=== PATIENT | female | born 1945 | race Caucasian/White ===

== ENCOUNTER 2019-02-03 17:38 | Inpatient (IN) | payer MEDICARE ==
[~2019-02-03] VITALS: Ht 167.6 cm; Wt 60.0 kg
[~2019-02-03 17:38] MED LIST: ABAT250V; CALCA400CH; FERSU220EL; GABA300 PO; LATUDA20 MG
[2019-02-03] MEDS ORDERED: PRAM.125 PO (18:02)
[2019-02-03 18:24] LABS: BASOPHILS ABSOLUTE AUTO 0.07 K/mm3 (0.00-0.23); BASOPHILS PERCENT AUTO 1 % (0-2); EOSINOPHILS ABSOLUTE AUTO 0.23 K/mm3 (0.00-0.68); EOSINOPHILS PERCENT AUTO 2 % (0-6); Hematocrit 38.2 % (33.0-51.0); Hemoglobin 12.5 g/dL (11.5-16.0); IMMATURE GRAN ABSOLUTE AUTO 0.03 K/mm3 (0.00-0.10); IMMATURE GRAN PERCENT AUTO 0 % (0-1); LYMPHOCYTES ABSOLUTE AUTO 0.88 K/mm3 (0.84-5.20); LYMPHOCYTES PERCENT AUTO 9 % (21-46); MONOCYTES ABSOLUTE AUTO 0.58 K/mm3 (0.16-1.47); MONOCYTES PERCENT AUTO 6 % (4-13); Mean Corpuscular HGB 30.3 pg (26.0-34.0); Mean Corpuscular HGB Conc 32.7 g/dL (31.5-36.5); Mean Corpuscular Volume 93 fL (80-100); NEUTROPHILS ABSOLUTE AUTO 7.95 K/mm3 (1.96-9.15); NEUTROPHILS PERCENT AUTO 82 % (41-73); RDW Standard Deviation 47.8 fL (35.1-46.3); Red Blood Cell Count 4.12 M/mm3 (3.80-5.20); White Blood Cell Count 9.74 K/mm3 (4.00-11.30)
[2019-02-03 18:53] LABS: Albumin, Blood 3.5 g/dL (3.4-5.0); Albumin/Globulin Ratio 0.8 (0.8-1.8); Bilirubin, Total 0.8 mg/dL (0.1-1.0); Bun/Creatinine Ratio 37.8 (12.0-20.0); Calcium, Blood 11.4 mg/dL (8.5-10.1); Creatinine, Blood 0.98 mg/dL (0.40-1.00); Globulin, Blood 4.2 g/dL (2.2-4.0); Mean Platelet Volume 11.6 fL (9.1-12.4); Platelet Count 179 K/mm3 (150-400); Potassium, Blood 4.4 mmol/L (3.5-5.5); Total Protein, Blood 7.7 g/dL (6.4-8.2)
[2019-02-03 20:31] LABS: Free Thyroxine 1.36 ng/dL (0.70-1.60)
[2019-02-03 20:35] LABS: Thyroid Stimulating Hormone 2.52 uIU/mL (0.360-4.800); Triiodothyronine, Free 2.9 pg/mL (2.18-3.98)
[2019-02-03 21:03] LABS: Source, Urine Catheter
[2019-02-03 21:04] LABS: International Normalized Ratio 0.96; Prothrombin Time Results 10.2 Sec (9.7-11.5)
[2019-02-03 21:06] LABS: Bilirubin, Urine Neg (Neg); Blood, Urine 1+ (Neg); Color, Urine Pale Yellow (P-Yellow); Glucose Qualitative, Urine Neg (Neg); Ketones, Urine Neg (Neg); Leukocyte Esterase, Urine 1+ (Neg); Nitrite, Urine Neg (Neg); Protein, Urine 3+ (Neg); Specific Gravity, Urine 1.015 (1.003-1.022); Urobilinogen, Urine NORM (Normal)
[2019-02-03 21:07] LABS: Appearance, Urine Cloudy (Clear)
[2019-02-03 21:15] LABS: Amorphous Heavy (0-Heavy); Bacteria Mod /hpf; Red Blood Cells, Urine Rare /hpf (0-2); Squamous Epithelial Cells Not Seen /hpf (Few)
[2019-02-03] MEDS ORDERED: AMLO5 PO (22:01)
[2019-02-03] MEDS ORDERED: Pravachol40 MG PO (22:01)
[2019-02-03] MEDS ORDERED: ESCI10 PO (22:02)
[2019-02-03] MEDS ORDERED: Omeprazole20 M1 PO (22:03)
[2019-02-03] MEDS ORDERED: Ferrous Sulfat325 M2 PO (22:03)
--- NOTE | 2019-02-03 23:30 | NUR ---
ASSUMED CARE- PT ARRIVES TO PCU 5 VIA STRETCHER FROM ER. CURRENTLY AOX4. PT AMBULATES WITH STANDBY ASSIST TO BEDSIDE COMMODE AND THEN TO BED. BLOOD PRESSURE ELEVATED, ALL OTHER VSS. PT CURRENTLY COMPLAINING OF PAIN TO EPIGASTRIC AREA AND REQUESTING PAIN MEDICATION. HEART RHYTHM CURRENTLY SINUS TACHYCARDIA WITH FREQUENT PVC'S WITH A RATE OF 103 PER LANGUAGE INSTRUCTOR. LUNG SOUNDS CLEAR THROUGHOUT. DENIES NAUSEA AT THIS TIME. OCCASIONAL PRODUCTIVE COUGH NOTED OF SMALL AMOUNTS OF THICK, BROWN SPUTUM. PT ORIENTED TO ROOM AND EDUCATED RUBBER SPLICER LIGHT SYSTEM. INFORMED ON CALLING FOR ASSISTANCE WITH AMBULATION. WILL CONTINUE WITH ADMISSION AND MONITORING. BED IN LOW POSITION, CALL LIGHT IN REACH.
[2019-02-04] LABS: Hematocrit 40.2 % (33.0-51.0); Hemoglobin 12.7 g/dL (11.5-16.0)
--- NOTE | 2019-02-04 00:19 | NUR ---
PROVIDER CONTACTED VIRTUAL RADIOLOGY CALLED WITH CRITICAL READING RESULT FROM CHEST/ABD CTA. PT WITH SMALL PE TO RLL. PT ALSO REPORTING CONTINUED PAIN TO EPIGASTRIC AREA. DR RAUSCH CONTACTED AND RESULTS OF CTA VERBALIZED AND PHYSICIAN REPORTED THAT CT RESULTS. ORDERS RECEIVED FOR FENTANYL 25 MCG Q4 PRN FOR PAIN. WILL INPUT ORDERS AND ADMINISTER.
[2019-02-04 02:37] LABS: Hematocrit 39.1 % (33.0-51.0); Hemoglobin 12.6 g/dL (11.5-16.0); Mean Corpuscular HGB 30.8 pg (26.0-34.0); Mean Corpuscular HGB Conc 32.2 g/dL (31.5-36.5); Mean Platelet Volume 10.4 fL (9.1-12.4); Platelet Count 287 K/mm3 (150-400); RDW Standard Deviation 49.3 fL (35.1-46.3); Red Blood Cell Count 4.09 M/mm3 (3.80-5.20); White Blood Cell Count 11.08 K/mm3 (4.00-11.30)
[2019-02-04 02:53] LABS: Mean Corpuscular Volume 96 fL (80-100)
[2019-02-04 03:03] LABS: Alanine Aminotransfer (ALT/SGP 12 U/L (12-78); Albumin, Blood 3.2 g/dL (3.4-5.0); Albumin/Globulin Ratio 0.8 (0.8-1.8); Alk Phos 87 U/L (50-136); Anion Gap 7 mmol/L (6-16); Aspartate Aminotrans (AST/SGOT 13 U/L (12-37); Bilirubin, Total 0.5 mg/dL (0.1-1.0); Blood Urea Nitrogen 31 mg/dL (8-24); Bun/Creatinine Ratio 33.5 (12.0-20.0); CO2, Blood 28 mmol/L (21-32); Calcium, Blood 9.7 mg/dL (8.5-10.1); Chloride, Blood 100 mmol/L (98-108); Creatinine, Blood 0.93 mg/dL (0.40-1.00); Globulin, Blood 3.8 g/dL (2.2-4.0); Glomerular Filtration Rate >60 (60-); Glucose, Blood 126 mg/dL (70-99); Potassium, Blood 4.3 mmol/L (3.5-5.5); Sodium, Blood 135 mmol/L (136-145)
--- NOTE | 2019-02-04 06:04 | NUR ---
SHIFT SUMMARY- PT HAS REMAINED AOX4 THROUGHOUT SHIFT. PLEASANT AND COOPERATIVE WITH CARE. BP HAS REMAINED ELEVATED THROUGHOUT THE NIGHT BUT HAS DECREASED SINCE ARRIVAL, ALL OTHER VSS. HEPARIN DRIP STARTED FOR TREATMENT OF PE AND TITRATED PER PHARMACY. PT MEDICATED MULTIPLE TIMES FOR EPIGASTRIC PAIN THAT RELIEVES WITH MAALOX. ALSO MEDICATED FOR GENERALIZED PAIN THAT DECREASES WITH ORDERED PAIN MEDICATION. PT CONTINUES TO AMBULATE WITH STANDBY ASSIST TO BEDSIDE COMMODE WITHOUT DIFFICULTY, REPORTS THAT SHE AMBULATES WITH WALKER AT BASELINE. HEART RATE HAS REMAINED CONTROLLED THROUGHOUT THE NIGHT. PT WITH NO EPISODES OF EMESIS OR DARK STOOL- REPORTS THAT PREVIOUS BM'S HAVE BEEN BROWN AND "NORMAL" FOR HER. NO OTHER CHANGES NOTED FROM INITIAL ASSESSMENT. WILL CONTINUE TO MONITOR AND REPORT TO ONCOMING SHIFT RN. BED IN LOW POSITION, CALL LIGHT IN REACH.
--- NOTE | 2019-02-04 13:30 | NUR ---
NOTIFIED DR MONTERO THAT PATIENT TAKES GABAPENTIN 600MG PO TID AT HOME, VERIFIED WITH [facility], NEW ORDERS ENTERED. NOTIFIED OF ELEVATED BP, CONTACT PROVIDER WITH SBP 175 OR GREATER[address] NOTIFIED THAT [address] ALVARADO WILL BE IN LATER THIS EVENING.
--- NOTE | 2019-02-04 19:46 | NUR ---
SHIFT SUMMARY PT A&OX4. ANXIOUS, NOTIFED DR MONTERO, NO NEW ORDERS. PT COOPERATIVE WITH CARE. PT RESTING IN BED DURING SHIFT, SBA TO BSC. PT REPORTS PAIN, EVERYWHERE, BACK AND BLE, MEDICATED X2 WITH FENTANYL. PT REPORTS HEART BURN/GI UPSET, MEDICATED PER EMAR. PT DENIES SOB, O2 SATS >91% ON RA. PT RECEIVING IV PROTONIX, NO EMESIS DURING SHIFT. PT ON HEPARIN DRIP FOR PE, DOSE ADJUSTMENTS PER ORDERS AND EMAR. ELEVATED BP THIS AM, NOTIFIED DR MONTERO, NO NEW ORDERS. OTHER VSS. NO ACUTE CHANGES NOTED DURING SHIFT. REPORT GIVEN TO ONCOMING RN.
[2019-02-05 00:36] LABS: Stool Occult Blood Guaiac 1 Neg (Neg)
[2019-02-05 00:45] LABS: Adenovirus F 40/41 Not Detected (NOT DETECT); Astrovirus Not Detected (NOT DETECT); Campylobacter Sp Not Detected (NOT DETECT); Cryptosporidium Not Detected (NOT DETECT); Cyclospora Cayetanensis Not Detected (NOT DETECT); E. Coli O157 Not Detected (NOT DETECT); Entamoeba Histolytica Not Detected (NOT DETECT); Enteroaggregative E. coli-EAEC Not Detected (NOT DETECT); Enteropathogenic E. coli-EPEC Not Detected (NOT DETECT); Enterotoxigenic E. coli-ETEC Not Detected (NOT DETECT); Giardia Lamblia Not Detected (NOT DETECT); Norovirus GI/GII Not Detected (NOT DETECT); Plesiomonas Shigelloides Not Detected (NOT DETECT); Rotavirus A Not Detected (NOT DETECT); Salmonella Sp Not Detected (NOT DETECT); Sapovirus Not Detected (NOT DETECT); Shiga Toxin-prod E. coli-STEC Not Detected (NOT DETECT); Shigella/Enteroin E. coli-EIEC Not Detected (NOT DETECT); Vibrio Cholerae Not Detected (NOT DETECT); Vibrio Sp Not Detected (NOT DETECT); Yersinia Enterocolitica Not Detected (NOT DETECT)
--- NOTE | 2019-02-05 03:14 | NUR ---
PROVIDER CONTACTED PT STOOL SPECIMEN RESULTED POSITIVE FOR C-DIFF. DR RAUSCH CONTACTED AND ORDERS RECEIVED FOR VANCOMYCIN 125 MG PO Q6. WILL INPUT ORDERS.
--- NOTE | 2019-02-05 06:26 | NUR ---
SHIFT SUMMARY- PT HAS REMAINED AOX4 THROUGHOUT SHIFT. VSS. PLEASANT AND COOPERATIVE WITH CARE. PT CONTINUES TO AMBULATE WITH STANDBY ASSIST TO BEDSIDE COMMODE. MEDICATED MULTIPLE TIMES THROUGHOUT SHIFT FOR GENERALIZED PAIN AND GI UPSET, BOTH OF WHICH DECREASED WITH ORDERED MEDICATIONS. PT HAS REMAINED NPO SINCE 0600 IN PREPARATION FOR EGD THIS AM. HEPARIN DRIP HAS BEEN ON STANDBY SINCE [address] ALVARADO'S ORDERS- PHARMACY INFORMED OF ANTICIPATED PAUSE PRIOR TO PLACING DRIP ON STANDBY. O2 SATS REMAINED >90% ON RA. NO OTHER CHANGES FROM INITIAL ASSESSMENT. WILL CONTINUE TO MONITOR AND REPORT TO ONCOMING SHIFT RN. BED IN LOW POSITION, CALL LIGHT IN REACH.
[2019-02-05 08:05] LABS: BASOPHILS PERCENT AUTO 1 % (0-2); EOSINOPHILS ABSOLUTE AUTO 0.43 K/mm3 (0.00-0.68); EOSINOPHILS PERCENT AUTO 6 % (0-6); Hemoglobin 10.9 g/dL (11.5-16.0); IMMATURE GRAN ABSOLUTE AUTO 0.03 K/mm3 (0.00-0.10); IMMATURE GRAN PERCENT AUTO 0 % (0-1); LYMPHOCYTES ABSOLUTE AUTO 1.15 K/mm3 (0.84-5.20); LYMPHOCYTES PERCENT AUTO 15 % (21-46); MONOCYTES ABSOLUTE AUTO 0.73 K/mm3 (0.16-1.47); MONOCYTES PERCENT AUTO 10 % (4-13); Mean Corpuscular HGB 30.4 pg (26.0-34.0); Mean Corpuscular HGB Conc 31.1 g/dL (31.5-36.5); Mean Corpuscular Volume 98 fL (80-100); Mean Platelet Volume 11.9 fL (9.1-12.4); NEUTROPHILS ABSOLUTE AUTO 5.19 K/mm3 (1.96-9.15); NEUTROPHILS PERCENT AUTO 68 % (41-73); Platelet Count 241 K/mm3 (150-400); RDW Coefficient Variation 14.3 % (11.7-14.2); RDW Standard Deviation 51.5 fL (35.1-46.3); Red Blood Cell Count 3.59 M/mm3 (3.80-5.20); White Blood Cell Count 7.63 K/mm3 (4.00-11.30)
--- NOTE | 2019-02-05 08:30 | NUR ---
NURSING PCU DAYSHIFT: Assumed care of pt at approx 0700. A/O, pleasant, cooperative w/care. C/O 05/11 chronic back pain, treating w/meds as ordered. Transfers independently w/o difficulty, uses FWW for ambulation. Chronic numbness/tingling of all ext's. Skin is fragile w/scattered bruising on UE's, no breakdown noted. Tele in place, NSR, no c/o CP/pressure, SBP 140's prior to a.m. meds, no noted edema. L/S fairly cta t/o w/dim bases, O2 sat low 90's on RA, occ cough producing white sputum per pt, denies dyspnea. Abd soft, mildly tender w/palp per pt, BT+, voiding w/o difficulty. PIV x2, s/l. No s/s of acute distress at this time. Plan for EGD this a.m. Seen by PMD, new d/o received for labs, results pending. Pt denies any current needs or questions regarding plan of care, call light in reach, cont to monitor for any changes.
--- NOTE | 2019-02-05 09:24 | NUR ---
History, Chart, Medications and Allergies reviewed before start of procedure. Lungs clear T/O to Auscultation.DIMINISHED BASES BILAT, RA BIOX 92/93%, COPD, WET COUGH, NO DYSPNEA, AFIB ON MONITOR, HEPARIN DRIP TURNED OFF AT 0200 THIS AM Patient confirms NPO status and agrees with scheduled surgery. Pre-Op teaching done. Pt verbalizes understanding. AMUBLATORY IN PCU5, TRANSFERS W/STANDBY ASSIST.
--- NOTE | 2019-02-05 09:36 | NUR ---
02/05/19 0936 Gordon Gardner PATIENT DETERMINED TO BE ASA APPROPRIATE FOR PROPOFOL SEDATION PRIOR TO START OF PROCEDURE BY . 3-LEAD EKG REVIEWED WITH PHYSICIAN PRIOR TO START OF PROCEDURE.PATIENT CONFIRMS NPO STATUS AND AGREES WITH SCHEDULED PROCEDURE.History, Chart, Medications and Allergies reviewed before start of procedure.MONITOR INTACT WITH CONTINUOUS PULSE OXIMETRY AND INTERMITTENT BP.O2 VIA N/C INTACT THROUGHOUT SEDATION/PROCEDURE.Bite Block Placed
--- NOTE | 2019-02-05 17:03 | NUR ---
NURSING PCU DAYSHIFT SUMMARY: No significant changes noted t/o the shift. EGD completed, pt tolerated well. Results reported to PMD, hep gtt resumed, mech soft diet started. Pt continues to c/o chronic pain, pain control meds changed to PO, administered as ordered. Pt appears to be resting comfortably at this time w/call light in reach. Denies any questions/needs, cont to monitor until rpt is given to NOC RN.
--- NOTE | 2019-02-06 05:01 | NUR ---
SHIFT SUMMARY PATIENT HAD NO ACUTE CHANGES OBSERVED THIS SHIFT. PATIENT REPORTED LOW BACK PAIN X 2 AND RECEIVED ULTRAM PER EMAR. PATIENT REPORTED REDUCED PAIN AND ABLE TO SLEEP. PIV REMAINS INTACT. HEPARIN INFUSING PER EMAR. ORAL VANCO GIVEN X 2. VSS/AFEBRILE. DENIES SOB AND N/V. RESTING IN BED T/O SHIFT. CALL LIGHT IN REACH. BED IN LOWEST POSITION. WILL CONTINUE TO MONITOR UNTIL DAY SHIFT NURSE ASSUMES CARE.
--- NOTE | 2019-02-06 07:53 | NUR ---
NURSING PCU DAYSHIFT: Assumed care of pt at approx 0700. A/O, pleasant, cooperative w/care. C/O /10 back and epigastric pain, treating w/meds as ordered and positioning. Able to xfer independently and w/o difficulty, chronic numbness/tingling of all ext's. Skin is intact w/scattered bruising to UE's, no breakdown noted. Tele in place, NSR w/PVC's, no c/o CP/pressure, SBP 130's prior to a.m. meds, no noted edema. L/S fairly cta t/o w/dim bases, occ cough producing white sputum per pt, O2 sat low 90's on RA, denies dyspnea. Abd soft, mildly tender w/palp, BT+, voiding clear/yellow urine. PIV x2, hep gtt infusing as per d/o. No s/s of acute distress at this time. Pt currently sitting up in bed having breakfast, denies any current questions/needs. Call light in reach, awaiting rounding from PMD, cont to monitor for any changes.
--- NOTE | 2019-02-06 15:17 | NUR ---
NURSING PCU TRANSFER SUMMARY: No acute changes noted t/o the a.m. Pt discussed w/PMD concerns regarding needing assistance at home for chores and ADL's, plan for care management to meet w/pt. VS remained stable, cardiac and respiratory status unchanged. Pt changed to medical status w/o tele, bed assignment received, telephone report provided to accepting RN. Pt denies any questions at this time, will xfer via w/c, cont to monitor until xfer is completed.
--- NOTE | 2019-02-06 16:19 | NUR ---
PT ARRIVED TO ROOM VIA W/C AWAKE ALERT. BED IN LOW AND LOCKED POSITION. FREQUENT ROUNDING EXPLAINED. CALL LIGHT INSTRUCTIONS GIVEN AND WITHIN REACH.
--- NOTE | 2019-02-06 18:06 | NUR ---
SHIFT SUMMARY TRANSFER FROM PCU THIS P.M. A AND OX4 INDEPENDENT IN ROOM. MECHANICAL SOFT DIET. ENDOSCOPY TODAY SHOWED NARROWING OF ESOPHAGUS WITH POSSIBLE NEED FOR DILATION. C/O PAIN TO LOWER AND UPPER EXT PRN MED GIVEN.
--- NOTE | 2019-02-07 07:19 | NUR ---
SHIFT SUMMARY PT HAD NO ACUTE ISSUES NOTED. PT DISCOMFORT TX WELL PER EMAR. PT SLEPT FOR MAJORITY OF SHIFT. PT HAD A EPISODE OF DIARRHEA EARLY THIS AM. PT STATES THIS WAS HER FIRST BOUT OF LOOSE STOOL. PT HAS BEEN WATCHING TV SINCE TAKING A SHOWER THIS AM. PT IS IN NO DISTRESS AND BREATHING EASY. CALL LIGHT IN REACH.
[2019-02-07] MEDS ORDERED: XARELTO15 MG PO (13:28)
[2019-02-07] MEDS ORDERED: XARELTO20 MG PO (13:29)
--- NOTE | 2019-02-07 17:06 | NUR ---
DISCHARGE PT DISCHARGED TO HOME WITH HOME HEALTH. THIS RN EXPLAINED DISCHARGE INSTRUCTIONS AND MEDICATIONS TO PT AND SHE REPORTS SHE UNDERSTANDS. IV X2 REMOVED WITHOUT DIFFICULTY. MEDICAL CODING TECHNICIAN IN TO SEE PT TO TALK ABOUT PT'S REQUEST FOR ASSISTANCE WITH FINDING PLACE TO LIVE IN ASSISTED FACILITY. PT'S MEDICATIONS FAXED TO [facility] PER REQUEST AND A RIDE TO THE PHARMACY AND TO HOME WAS SET UP WITH A TAXI. PT TRANSFERRED TO A TAXI VIA WHEELCHAIR BY KILN PULLER. PT'S BELONGINGS WITH PT.
== END 2019-02-07 16:54 | disposition home health service (06) | DRG 391 ==
LOC: ER 17:38 → PCU 17:39 → ER 23:00 → PCU 23:00 → MEDS 02-04 14:36 → PCU 02-04 14:37 → MEDS 02-06 16:15
PROVIDERS: Emergency Medicine; Hospitalist; Internal Medicine Gastroenterology; Nurse Practitioner Acute Care; ADMIT Family Medicine
PROC: 0DJ08ZZ Inspection of Upper Intestinal Tract, Via Natural or Artificial Opening Endoscopic (ICD-10-PCS; principal; 2019-02-05 09:00)
DX: K22.2 Esophageal obstruction (principal); I26.99 Other pulmonary embolism without acute cor pulmonale; I48.2 Chronic atrial fibrillation; Z79.01 Long term (current) use of anticoagulants; F31.9 Bipolar disorder, unspecified; Z91.14 Patient's other noncompliance with medication regimen; W19.XXXA Unspecified fall, initial encounter; E83.52 Hypercalcemia; D50.9 Iron deficiency anemia, unspecified; K44.9 Diaphragmatic hernia without obstruction or gangrene
CPT/HCPCS: 36415; 71046; 71275; 74174; 80053; 81001; 82272; 83690; 83880; 83970; 84439; 84443; 84481; 84484; 85014; 85018; 85025; 85027; 85610; 85730; 86850; 86900; 86901; 87086; 87324; 87338; 87507; 93005; 93010; 96361; 96374; 96375; 96376; 99285-25; C9113; G0378; J1644; J1650; J2270; J2405; J2704; J3010; J7030; J7120; Q9967

== ENCOUNTER 2019-02-20 19:02 | Emergency (ER) | payer MEDICARE ==
[~2019-02-20] VITALS: Ht 162.6 cm; Wt 59.0 kg
[~2019-02-20 19:02] MED LIST changes: +AMLO5 PO; +ESCI10 PO; +Ferrous Sulfat325 M2 PO; +Omeprazole20 M1 PO; +PRAM.125 PO; +Pravachol40 MG PO; +XARELTO15 MG PO; +XARELTO20 MG PO
[2019-02-20 20:50] LABS: Anion Gap 7 mmol/L (6-16); Blood Urea Nitrogen 11 mg/dL (8-24); Bun/Creatinine Ratio 13.9 (12.0-20.0); CO2, Blood 24 mmol/L (21-32); Calcium, Blood 8.9 mg/dL (8.5-10.1); Chloride, Blood 108 mmol/L (98-108); Creatinine, Blood 0.79 mg/dL (0.40-1.00); Glomerular Filtration Rate >60 (60-); Glucose, Blood 84 mg/dL (70-99); Potassium, Blood 3.7 mmol/L (3.5-5.5); Sodium, Blood 139 mmol/L (136-145)
[2019-02-20] MEDS ORDERED: Ativan0.5 MG PO (21:06)
== END 2019-02-20 21:35 | disposition home or self-care (01) ==
LOC: ER 19:02
PROVIDERS: Emergency Medicine
DX: R25.2 Cramp and spasm (principal); F31.9 Bipolar disorder, unspecified; I10 Essential (primary) hypertension; D64.9 Anemia, unspecified; F17.210 Nicotine dependence, cigarettes, uncomplicated; Z79.899 Other long term (current) drug therapy
CPT/HCPCS: 36415; 80048; 93005; 93010; 96374; 99284-25; J2060

== ENCOUNTER 2019-02-22 18:38 | Emergency (ER) | payer MEDICARE ==
[~2019-02-22] VITALS: Ht 162.6 cm; Wt 56.7 kg
[~2019-02-22 18:38] MED LIST changes: +Ativan0.5 MG PO
[2019-02-22] MEDS ORDERED: Ativan0.5 MG PO (21:07)
== END 2019-02-22 21:38 | disposition home or self-care (01) ==
LOC: ER 18:38
DX: M62.831 Muscle spasm of calf (principal); F31.9 Bipolar disorder, unspecified; I10 Essential (primary) hypertension; I48.2 Chronic atrial fibrillation; D64.9 Anemia, unspecified; K21.9 Gastro-esophageal reflux disease without esophagitis; F17.210 Nicotine dependence, cigarettes, uncomplicated; Z86.711 Personal history of pulmonary embolism
CPT/HCPCS: 96374; 96375; 96376; 99284-25; J1170; J2060

== ENCOUNTER 2019-02-26 22:26 | Emergency (ER) | payer MEDICARE ==
[~2019-02-26] VITALS: Ht 167.6 cm; Wt 59.0 kg
== END 2019-02-27 01:46 | disposition home or self-care (01) ==
LOC: ER 22:26
DX: R25.2 Cramp and spasm (principal); I48.91 Unspecified atrial fibrillation; I10 Essential (primary) hypertension; F17.210 Nicotine dependence, cigarettes, uncomplicated; Z79.899 Other long term (current) drug therapy
CPT/HCPCS: 93005; 93010; A9270-GY

== ENCOUNTER 2019-04-04 10:44 | Emergency (ER) | payer MEDICARE ==
[~2019-04-04] VITALS: Ht 167.6 cm; Wt 52.2 kg
[2019-04-04] MEDS ORDERED: OMEPRAZOLE20 MG PO (10:55)
[2019-04-04] MEDS ORDERED: LAMO25 PO (10:55)
[2019-04-04] MEDS ORDERED: LORA.5 PO (10:56)
== END 2019-04-04 13:05 | disposition home or self-care (01) ==
LOC: ER 10:44
DX: S01.81XA Laceration without foreign body of other part of head, initial encounter (principal); W01.198A Fall on same level from slipping, tripping and stumbling with subsequent striking against other object, initial encounter; Z79.899 Other long term (current) drug therapy; I48.91 Unspecified atrial fibrillation; I10 Essential (primary) hypertension; F17.210 Nicotine dependence, cigarettes, uncomplicated
CPT/HCPCS: 70450; 72125; 99284-25; A9270-GY

== ENCOUNTER 2019-04-13 16:11 | Observation (INO) | payer MEDICARE ==
[~2019-04-13] VITALS: Ht 167.6 cm; Wt 54.6 kg
[~2019-04-13 16:11] MED LIST changes: -AMLO5 PO; +LAMO25 PO; +LORA.5 PO; +OMEPRAZOLE20 MG PO; -XARELTO15 MG PO
[2019-04-13 16:34] LABS: BASOPHILS ABSOLUTE AUTO 0.08 K/mm3 (0.00-0.23); BASOPHILS PERCENT AUTO 1 % (0-2); EOSINOPHILS ABSOLUTE AUTO 0.45 K/mm3 (0.00-0.68); EOSINOPHILS PERCENT AUTO 6 % (0-6); Hematocrit 37.8 % (33.0-51.0); IMMATURE GRAN ABSOLUTE AUTO 0.01 K/mm3 (0.00-0.10); IMMATURE GRAN PERCENT AUTO 0 % (0-1); LYMPHOCYTES ABSOLUTE AUTO 1.51 K/mm3 (0.84-5.20); LYMPHOCYTES PERCENT AUTO 21 % (21-46); MONOCYTES ABSOLUTE AUTO 0.58 K/mm3 (0.16-1.47); MONOCYTES PERCENT AUTO 8 % (4-13); Mean Corpuscular HGB 28.4 pg (26.0-34.0); Mean Corpuscular HGB Conc 31.7 g/dL (31.5-36.5); Mean Corpuscular Volume 89 fL (80-100); Mean Platelet Volume 10.6 fL (9.1-12.4); NEUTROPHILS ABSOLUTE AUTO 4.47 K/mm3 (1.96-9.15); NEUTROPHILS PERCENT AUTO 63 % (41-73); Platelet Count 289 K/mm3 (150-400); RDW Coefficient Variation 16.2 % (11.7-14.2); RDW Standard Deviation 53.3 fL (35.1-46.3); Red Blood Cell Count 4.23 M/mm3 (3.80-5.20)
[2019-04-13 17:08] LABS: Alanine Aminotransfer (ALT/SGP 13 U/L (12-78); Albumin, Blood 3.4 g/dL (3.4-5.0); Albumin/Globulin Ratio 0.9 (0.8-1.8); Alk Phos 83 U/L (50-136); Anion Gap 9 mmol/L (6-16); Aspartate Aminotrans (AST/SGOT 12 U/L (12-37); Bilirubin, Total 0.6 mg/dL (0.1-1.0); Blood Urea Nitrogen 14 mg/dL (8-24); Bun/Creatinine Ratio 12.8 (12.0-20.0); CO2, Blood 22 mmol/L (21-32); Calcium, Blood 8.8 mg/dL (8.5-10.1); Chloride, Blood 104 mmol/L (98-108); Creatinine, Blood 1.09 mg/dL (0.40-1.00); Globulin, Blood 3.7 g/dL (2.2-4.0); Glomerular Filtration Rate 53 (60-); Glucose, Blood 87 mg/dL (70-99); Potassium, Blood 4.1 mmol/L (3.5-5.5); Sodium, Blood 135 mmol/L (136-145); Total Protein, Blood 7.1 g/dL (6.4-8.2); Troponin I <0.015 ng/mL (0.000-0.040)
[2019-04-13 17:25] LABS: International Normalized Ratio 0.96; Prothrombin Time Results 10.2 Sec (9.7-11.5)
[2019-04-13] MEDS ORDERED: XARELTO20 MG PO (18:55)
[2019-04-13] MEDS ORDERED: AMLO5 PO (18:58)
[2019-04-13 21:10] LABS: Hematocrit 35.7 % (33.0-51.0); Hemoglobin 11.5 g/dL (11.5-16.0)
[2019-04-14 00:14] LABS: U Amphetamine Screen Not Detected; U Barbituate Screen Not Detected; U Benzodiazapine Screen Not Detected; U Buprenorphine Screen Not Detected; U Cannabinoids Screen DETECTED; U Cocaine Screen Not Detected; U Methadone Screen Not Detected; U Methamphetamine Screen Not Detected; U Opiates Screen Not Detected; U Oxycodone Screen Not Detected; U Phencyclidine Screen Not Detected; U Propoxyphene Screen Not Detected
--- NOTE | 2019-04-14 00:34 | NUR ---
ASSUMED PT CARE AT 2245 PT ARRIVED VIA STRETCHER. ALERT AND ORIENTED AND ABLE TO MAKE NEEDS KNOWN. PT IMMEDIATELY ASKING FOR NARCOTICS UPON ARRIVAL. WHEN ASKED WHERE HER PAIN WAS AT SHE STATED IN HER LEGS. SHE STATED IT FELT LIKE THEY WERE CRAMPING AND WERE RESTLESS IN GENERAL. INFORMED HER I WOULD CALL THE DOCTOR IN REG[place]DS TO A MUSCLE RELAXER. PT ADAMENT ABOUT ENSURING IT WAS A NARCOTIC THAT SHE WAS GOING TO GET AND STATED THAT MUSCLE RELAXERS DON'T WORK. WHEN ASKED WHAT SHE TAKES AT HOME FOR HER PAIN SHE STATED, NOTHING, BECAUSE SHE DOESN'T HAVE ANYTHING. THEN STATED LATER THAT SHE JUST WANTS TO SLEEP. TWO CALL HAVE BEEN PLACED TO HOSPITALIST WITH THE FIRST BEING AROUND 2345 AND THE SECOND AT 0020 WITH NO ANSWERS. UPDATED PT ACCORDINGLY; PT GETS VERY ANGRY AND LABILE WITH MOOD REGARDING WANTING A PAIN PILL. ABDOMEN IS SOFT, NON-TENDER WITH ACTIVE BT. NO EMESIS NOTED. NO STOOLS THIS SHIFT. PT DENIES ANY BLOODY STOOL. STATES HER ONLY DISCOMFORT IS HER 10/10 PAIN TO HER LEGS. CALL LIGHT LEFT WITHIN REACH. PT ABLE TO MAKE NEEDS KNOWN.
--- NOTE | 2019-04-14 00:40 | NUR ---
DR. COLLINS CALLED BACK. EXPLAINED LEG CRAMPS, ELEVATED BP, AND PT REQUESTING SOMETHING FOR SLEEP. NEW ORDERS FOR FLEXERIL 10MG PO TID PRN, MELATONIN 3MG PO AT HS, AND NORVASC 5MG PO DAILY. UPDATED PT REGARDING NEW ORDERS. SHE STARTED SLAPPING HER LEGS AND CURSING STATING IT WASN'T GOING TO WORK. PT STATED SHE CAN'T BE HERE ANY LONGER. STATED SHE NEEDED TO GET UP AND OUT OF BED BECAUSE SHE COULDN'T TAKE IT ANY LONGER.
--- NOTE | 2019-04-14 02:20 | NUR ---
CALLED DR. COLLINS TO UPDATE REGARDING FLEXERIL BEING UNEFFECTIVE FOR PT'S MUSCLE CRAMPS. NEW ORDERS FOR FENTANYL 25-50MCG Q4HRS PRN.
[2019-04-14 03:41] LABS: BASOPHILS ABSOLUTE AUTO 0.08 K/mm3 (0.00-0.23); BASOPHILS PERCENT AUTO 1 % (0-2); EOSINOPHILS ABSOLUTE AUTO 0.45 K/mm3 (0.00-0.68); EOSINOPHILS PERCENT AUTO 7 % (0-6); Hemoglobin 12.4 g/dL (11.5-16.0); IMMATURE GRAN ABSOLUTE AUTO 0.01 K/mm3 (0.00-0.10); IMMATURE GRAN PERCENT AUTO 0 % (0-1); LYMPHOCYTES ABSOLUTE AUTO 1.24 K/mm3 (0.84-5.20); LYMPHOCYTES PERCENT AUTO 21 % (21-46); MONOCYTES ABSOLUTE AUTO 0.57 K/mm3 (0.16-1.47); MONOCYTES PERCENT AUTO 9 % (4-13); Mean Corpuscular HGB 28.6 pg (26.0-34.0); Mean Corpuscular HGB Conc 31.8 g/dL (31.5-36.5); Mean Corpuscular Volume 90 fL (80-100); Mean Platelet Volume 10.6 fL (9.1-12.4); NEUTROPHILS ABSOLUTE AUTO 3.71 K/mm3 (1.96-9.15); NEUTROPHILS PERCENT AUTO 61 % (41-73); Platelet Count 276 K/mm3 (150-400); RDW Coefficient Variation 16.1 % (11.7-14.2); RDW Standard Deviation 53.2 fL (35.1-46.3); Red Blood Cell Count 4.34 M/mm3 (3.80-5.20); White Blood Cell Count 6.06 K/mm3 (4.00-11.30)
[2019-04-14 04:01] LABS: Anion Gap 5 mmol/L (6-16); Blood Urea Nitrogen 18 mg/dL (8-24); Bun/Creatinine Ratio 18.6 (12.0-20.0); CO2, Blood 22 mmol/L (21-32); Calcium, Blood 8.9 mg/dL (8.5-10.1); Chloride, Blood 109 mmol/L (98-108); Creatinine, Blood 0.97 mg/dL (0.40-1.00); Glomerular Filtration Rate >60 (60-); Glucose, Blood 85 mg/dL (70-99); Potassium, Blood 4.1 mmol/L (3.5-5.5); Sodium, Blood 136 mmol/L (136-145)
--- NOTE | 2019-04-14 06:01 | NUR ---
END OF SHIFT SUMMARY NO SIGNIFICANT CHANGES. NO SIGNS OF ACTIVE BLEEDING; HGB STABLE AT 12.3. PT HASN'T HAD A BM THIS SHIFT, WELL NO EMESIS. PT HAS BEEN HYPERTENSIVE MOST OF SHIFT WHEN AWAKE AND IN DISCOMFORT D/T HER LEGS CRAMPING; SBP WAS IN THE 190'S. ONCE PT WAS SLEEPING AND RELAXED HER BP DROPPED TO 140'S. PT IS SUPPOSED TO BE TAKING NORVASC 5MG DAILY FOR HYPERTENSION, BUT DENIED TAKING IT AT ALL DURING MEDICATION RECONCILIATION; DR. COLLINS RESTARTED NORVASC AT 5MG. PT VERY UPSET FOR MOST OF SHIFT DEMANDING PAIN MEDICATION FOR HER LEGS THAT WERE CRAMPING. PT WAS GIVEN FLEXERIL THAT SHE CLAIMED WAS UNEFFECTIVE AND THEN FENTANYL 25MCG THAT ALSO WASN'T EFFECTIVE, BUT PT ENDED UP BEING ABLE TO SLEEP FOR A SHORT WHILE ABOUT AN HOUR AFTER ADMINISTRATION. EDUCATED AND ENCOURAGED PT TO FOLLOW UP WITH HER PRIMARY CARE DOCTOR REGARDING HER PAIN/DISCOMFORT IN HER LEGS SHE STATES IT IS BECOMING MORE OF A CHRONIC PROBLEM FOR HER. PT CLAIMS THAT SHE STRUGGLES FINDING TRANSPORTATION TO GET BACK AND FORTH TO APPOINTMENTS. SHE STATES SHE HAS NO FAMILY OR FRIENDS THAT LIVE IN THE [place] AND RELIES ON DIAL A RIDE FOR HER TRANSPORT. PT REQUIRES FREQUENT REINFORCEMENT AND EDUCATION. CALL LIGHT WITHIN REACH; ABLE TO MAKE NEEDS KNOWN. WILL CONTINUE TO MONITOR UNTIL REPORT IS HANDED OFF TO DAY SHIFT RN.
[2019-04-14] MEDS ORDERED: AMLO5 PO (10:17)
[2019-04-14] MEDS ORDERED: LORA2L PO (10:17)
--- NOTE | 2019-04-14 10:42 | NUR ---
PROVIDED PT WITH DISCHARGE INSTRUCTIONS AND ANSWERED ALL QUESTIONS. PROVIDED PT WITH A WRITTEN PRESCRIPTION FOR ATIVAN AND FAXED THE PRESCRIPTION FOR NORVASC TO [facility]. PROVIDED PT WITH A DIAL-A-RIDE HANDOUT WITH CONTACT INFORMATION TO HELP PT OBTAIN RIDES TO HER APPOINTMENTS AND PHARMACY. VERBALIZED GOOD UNDERSTANDING. CALLED THE [employer] SERVICE TO PROVIDE PT WITH A RIDE HOME.
== END 2019-04-14 10:50 | disposition home or self-care (01) ==
LOC: ER 16:11 → ICUW 16:12 → ICUE 22:28
PROVIDERS: Emergency Medicine; Nurse Practitioner Acute Care; ADMIT Internal Medicine
DX: K92.0 Hematemesis (principal); I10 Essential (primary) hypertension; F17.210 Nicotine dependence, cigarettes, uncomplicated; F10.20 Alcohol dependence, uncomplicated; F31.9 Bipolar disorder, unspecified; I48.2 Chronic atrial fibrillation; F41.9 Anxiety disorder, unspecified; E61.1 Iron deficiency; E87.1 Hypo-osmolality and hyponatremia; Z79.899 Other long term (current) drug therapy
CPT/HCPCS: 36415; 71045; 80048; 80053; 82272; 83690; 84484; 85014; 85018; 85025; 85610; 86850; 86900; 86901; 93005; 93010; 96361; 96374; 96375; 96376; 99285-25; C9113; G0378; G0480; J2405; J3010; J7030

== ENCOUNTER 2019-04-27 19:14 | Emergency (ER) | payer MEDICARE ==
[~2019-04-27] VITALS: Ht 167.6 cm; Wt 52.2 kg
[~2019-04-27 19:14] MED LIST changes: +AMLO5 PO; +LORA2L PO
== END 2019-04-27 22:15 | disposition home or self-care (01) ==
LOC: ER 19:14
DX: S00.211A Abrasion of right eyelid and periocular area, initial encounter (principal); F10.129 Alcohol abuse with intoxication, unspecified; I10 Essential (primary) hypertension; I48.91 Unspecified atrial fibrillation; F17.210 Nicotine dependence, cigarettes, uncomplicated; Z79.899 Other long term (current) drug therapy; Z23 Encounter for immunization; W01.0XXA Fall on same level from slipping, tripping and stumbling without subsequent striking against object, initial encounter
CPT/HCPCS: 70450; 72125; 90471; 90714; 99284-25

== ENCOUNTER 2019-05-03 16:15 | Observation (INO) | payer MEDICARE ==
[~2019-05-03] VITALS: Ht 167.6 cm; Wt 59.0 kg
[2019-05-03 17:35] LABS: BASOPHILS ABSOLUTE AUTO 0.11 K/mm3 (0.00-0.23); BASOPHILS PERCENT AUTO 1 % (0-2); EOSINOPHILS ABSOLUTE AUTO 0.31 K/mm3 (0.00-0.68); EOSINOPHILS PERCENT AUTO 3 % (0-6); Hematocrit 39.3 % (33.0-51.0); Hemoglobin 12.9 g/dL (11.5-16.0); IMMATURE GRAN ABSOLUTE AUTO 0.05 K/mm3 (0.00-0.10); IMMATURE GRAN PERCENT AUTO 1 % (0-1); LYMPHOCYTES ABSOLUTE AUTO 0.95 K/mm3 (0.84-5.20); LYMPHOCYTES PERCENT AUTO 10 % (21-46); MONOCYTES ABSOLUTE AUTO 0.82 K/mm3 (0.16-1.47); MONOCYTES PERCENT AUTO 9 % (4-13); Mean Corpuscular HGB 28.9 pg (26.0-34.0); Mean Corpuscular HGB Conc 32.8 g/dL (31.5-36.5); Mean Corpuscular Volume 88 fL (80-100); Mean Platelet Volume 10.4 fL (9.1-12.4); NEUTROPHILS ABSOLUTE AUTO 7.14 K/mm3 (1.96-9.15); NEUTROPHILS PERCENT AUTO 76 % (41-73); Platelet Count 339 K/mm3 (150-400); RDW Coefficient Variation 16.5 % (11.7-14.2); RDW Standard Deviation 52.9 fL (35.1-46.3); Red Blood Cell Count 4.47 M/mm3 (3.80-5.20); White Blood Cell Count 9.38 K/mm3 (4.00-11.30)
[2019-05-03 17:48] LABS: International Normalized Ratio 0.94
[2019-05-03 17:59] LABS: Alanine Aminotransfer (ALT/SGP 19 U/L (12-78); Albumin, Blood 3.6 g/dL (3.4-5.0); Albumin/Globulin Ratio 0.8 (0.8-1.8); Alk Phos 125 U/L (50-136); Anion Gap 7 mmol/L (6-16); Aspartate Aminotrans (AST/SGOT 21 U/L (12-37); Bilirubin, Total 0.4 mg/dL (0.1-1.0); Blood Urea Nitrogen 22 mg/dL (8-24); Bun/Creatinine Ratio 28.8 (12.0-20.0); CO2, Blood 26 mmol/L (21-32); Calcium, Blood 9.7 mg/dL (8.5-10.1); Chloride, Blood 93 mmol/L (98-108); Creatinine, Blood 0.76 mg/dL (0.40-1.00); Ethanol (Alcohol), Blood, Med <3 mg/dL; Globulin, Blood 4.7 g/dL (2.2-4.0); Glomerular Filtration Rate >60 (60-); Glucose, Blood 105 mg/dL (70-99); Potassium, Blood 4.1 mmol/L (3.5-5.5); Sodium, Blood 126 mmol/L (136-145); Total Protein, Blood 8.3 g/dL (6.4-8.2)
--- NOTE | 2019-05-04 06:04 | NUR ---
SHIFT SUMMARY PATIENT ADMITTED FROM ER. ORIENTED TO PERSON, SITUATION, AND PLACE. CIWA BETWEEN 4-9. TREATED WITH APPROPRIATE INTERVENTIONS (SEE EMAR). PATIENT UP WITH SBA TO BSC. WILL CONTINUE TO MONITOR
[2019-05-04 06:10] LABS: BASOPHILS ABSOLUTE AUTO 0.07 K/mm3 (0.00-0.23); BASOPHILS PERCENT AUTO 1 % (0-2); EOSINOPHILS ABSOLUTE AUTO 0.39 K/mm3 (0.00-0.68); EOSINOPHILS PERCENT AUTO 5 % (0-6); Hematocrit 36.3 % (33.0-51.0); Hemoglobin 11.8 g/dL (11.5-16.0); IMMATURE GRAN ABSOLUTE AUTO 0.02 K/mm3 (0.00-0.10); IMMATURE GRAN PERCENT AUTO 0 % (0-1); LYMPHOCYTES ABSOLUTE AUTO 0.96 K/mm3 (0.84-5.20); LYMPHOCYTES PERCENT AUTO 13 % (21-46); MONOCYTES ABSOLUTE AUTO 0.75 K/mm3 (0.16-1.47); MONOCYTES PERCENT AUTO 10 % (4-13); Mean Corpuscular HGB 28.7 pg (26.0-34.0); Mean Corpuscular HGB Conc 32.5 g/dL (31.5-36.5); Mean Corpuscular Volume 88 fL (80-100); Mean Platelet Volume 10.7 fL (9.1-12.4); NEUTROPHILS PERCENT AUTO 70 % (41-73); Platelet Count 287 K/mm3 (150-400); RDW Coefficient Variation 16.8 % (11.7-14.2); RDW Standard Deviation 53.6 fL (35.1-46.3); Red Blood Cell Count 4.11 M/mm3 (3.80-5.20); White Blood Cell Count 7.39 K/mm3 (4.00-11.30)
[2019-05-04 06:37] LABS: Anion Gap 4 mmol/L (6-16); Blood Urea Nitrogen 19 mg/dL (8-24); Bun/Creatinine Ratio 23.2 (12.0-20.0); CO2, Blood 27 mmol/L (21-32); Calcium, Blood 8.8 mg/dL (8.5-10.1); Chloride, Blood 106 mmol/L (98-108); Creatinine, Blood 0.82 mg/dL (0.40-1.00); Glomerular Filtration Rate >60 (60-); Glucose, Blood 107 mg/dL (70-99)
[2019-05-04 07:08] LABS: Sodium, Blood 137 mmol/L (136-145)
--- NOTE | 2019-05-04 16:56 | NUR ---
SHIFT SUMMARY PT ALERT THIS SHIFT. CIWA SCORE IN FROM 3-8. MEDICATED NEEDED. NO OTHER CHANGES IN ASSESSMENT AT THIS TIME. VSS. PT DENIES NEED AT THIS TIME. PT VERY IMPULSIVE & UNSTEADY. BED ALARM ON. PT REMINDED TO CALL WHEN NEEDING TO GET UP. WILL CONTINUE TO MONITOR UNTIL TURNOVER IS COMPLETE.
--- NOTE | 2019-05-05 04:47 | NUR ---
SHIFT SUMMARY PATIENT HAD NO ACUTE CHANGES OBSERVED THIS SHIFT. AXO X3 AND ONE ASSIST TO BR. UNSTEADY ON FEET AND IMPULSIVE WITH BED ALARM ACTIVATED. CIWA=3 THIS SHIFT. VSS/AFEBRILE. REPORTS BACK PAIN AND GIVEN TYLENOL PER EMAR. DENIES SOB AND N/V. PIV REMAINS INTACT. TAKES MEDICATION WHOLE WITH WATER. CALL LIGHT IN REACH. BED IN LOWEST POSITION. WILL CONTINUE TO MONITOR UNTIL DAY SHIFT NURSE ASSUMES CARE.
--- NOTE | 2019-05-05 09:04 | NUR ---
PT ASKING FOR PAIN MEDICATIONS DR. ZAMUDIO CALLED & NOTIFIED THAT THE PT IS DEMANDING THE DR. ORDER MORE PAIN MEDICATION. PT STATES TYLENOL DOES NOTHING & SHE NEEDS SOMTHING STRONGER. PT STATES PAIN IN HER LEGS. PT ALSO STATED SHE DOESN'T TAKE ANYTHING AT HOME FOR PAIN. DR. ZAMUDIO STATED SHE WILL REVIEW PT CHART.
[2019-05-05 10:37] LABS: Albumin, Blood 2.8 g/dL (3.4-5.0); Anion Gap 4 mmol/L (6-16); Blood Urea Nitrogen 17 mg/dL (8-24); Bun/Creatinine Ratio 20.8 (12.0-20.0); CO2, Blood 27 mmol/L (21-32); Calcium, Blood 8.6 mg/dL (8.5-10.1); Chloride, Blood 106 mmol/L (98-108); Creatinine, Blood 0.82 mg/dL (0.40-1.00); Glomerular Filtration Rate >60 (60-); Glucose, Blood 120 mg/dL (70-99); Phosphorus, Blood 3.6 mg/dL (2.5-4.9); Potassium, Blood 4.1 mmol/L (3.5-5.5); Sodium, Blood 137 mmol/L (136-145)
[2019-05-05] MEDS ORDERED: DOCU100 PO (13:51)
[2019-05-05] MEDS ORDERED: B-1100 MG PO (13:54)
[2019-05-05] MEDS ORDERED: FOLI1 PO (13:54)
--- NOTE | 2019-05-05 14:23 | NUR ---
PT DISCHARGED PT DISCAHRGED AT 1410. PT IN STABLE CONDITION WITH VSS. NO CHANGES IN ASSESSMENT AT THIS TIME. PT EDUCATED ON DC INSTRUCTIONS. PT WHEELED OUT BY OXIDIZED FINISH PLATER & DRIVEN HOME VIA TAXI.
== END 2019-05-05 14:10 | disposition home or self-care (01) ==
LOC: ER 16:15 → PCU 16:16 → MEDS 16:16
PROVIDERS: Emergency Medicine; Internal Medicine; ADMIT Hospitalist
DX: E87.1 Hypo-osmolality and hyponatremia (principal); R11.2 Nausea with vomiting, unspecified; R10.13 Epigastric pain; K21.9 Gastro-esophageal reflux disease without esophagitis; F10.129 Alcohol abuse with intoxication, unspecified; Z87.11 Personal history of peptic ulcer disease; I48.0 Paroxysmal atrial fibrillation; I10 Essential (primary) hypertension; F31.9 Bipolar disorder, unspecified; Z87.891 Personal history of nicotine dependence; Z79.899 Other long term (current) drug therapy
CPT/HCPCS: 36415; 80048; 80053; 80069; 83690; 85025; 85610; 85730; 96361; 96374; 96375; 97161; 99285-25; A9270; C9113; G0378; G0480; J2060; J2405; J7030

== ENCOUNTER 2019-05-10 19:45 | Inpatient (IN) | payer MEDICARE ==
[~2019-05-10] VITALS: Ht 167.6 cm; Wt 59.2 kg
[~2019-05-10 19:45] MED LIST changes: +B-1100 MG PO; +DOCU100 PO; +FOLI1 PO
[2019-05-10 21:41] LABS: BASOPHILS ABSOLUTE AUTO 0.08 K/mm3 (0.00-0.23); BASOPHILS PERCENT AUTO 1 % (0-2); EOSINOPHILS ABSOLUTE AUTO 0.04 K/mm3 (0.00-0.68); EOSINOPHILS PERCENT AUTO 1 % (0-6); Hematocrit 41.1 % (33.0-51.0); Hemoglobin 13.7 g/dL (11.5-16.0); IMMATURE GRAN ABSOLUTE AUTO 0.01 K/mm3 (0.00-0.10); IMMATURE GRAN PERCENT AUTO 0 % (0-1); LYMPHOCYTES ABSOLUTE AUTO 0.74 K/mm3 (0.84-5.20); LYMPHOCYTES PERCENT AUTO 13 % (21-46); MONOCYTES ABSOLUTE AUTO 0.32 K/mm3 (0.16-1.47); MONOCYTES PERCENT AUTO 6 % (4-13); Mean Corpuscular HGB 29.4 pg (26.0-34.0); Mean Corpuscular HGB Conc 33.3 g/dL (31.5-36.5); Mean Corpuscular Volume 88 fL (80-100); Mean Platelet Volume 10.5 fL (9.1-12.4); NEUTROPHILS ABSOLUTE AUTO 4.33 K/mm3 (1.96-9.15); NEUTROPHILS PERCENT AUTO 79 % (41-73); Platelet Count 339 K/mm3 (150-400); RDW Coefficient Variation 17.6 % (11.7-14.2); RDW Standard Deviation 55.6 fL (35.1-46.3); Red Blood Cell Count 4.66 M/mm3 (3.80-5.20); White Blood Cell Count 5.52 K/mm3 (4.00-11.30)
[2019-05-10 21:55] LABS: Ethanol (Alcohol), Blood, Med 264 mg/dL; Troponin I <0.015 ng/mL (0.000-0.040)
[2019-05-10 22:12] LABS: Alanine Aminotransfer (ALT/SGP 22 U/L (12-78); Albumin, Blood 3.6 g/dL (3.4-5.0); Albumin/Globulin Ratio 0.9 (0.8-1.8); Alk Phos 159 U/L (50-136); Anion Gap 13 mmol/L (6-16); Aspartate Aminotrans (AST/SGOT 35 U/L (12-37); Bilirubin, Total 0.7 mg/dL (0.1-1.0); Blood Urea Nitrogen 23 mg/dL (8-24); Bun/Creatinine Ratio 26.9 (12.0-20.0); CO2, Blood 31 mmol/L (21-32); Chloride, Blood 92 mmol/L (98-108); Creatinine, Blood 0.86 mg/dL (0.40-1.00); Globulin, Blood 4.2 g/dL (2.2-4.0); Glomerular Filtration Rate >60 (60-); Glucose, Blood 91 mg/dL (70-99); Potassium, Blood 3.9 mmol/L (3.5-5.5); Sodium, Blood 136 mmol/L (136-145); Total Protein, Blood 7.8 g/dL (6.4-8.2)
[2019-05-10 23:22] LABS: Free Thyroxine 1.24 ng/dL (0.70-1.60)
[2019-05-10 23:24] LABS: Thyroid Stimulating Hormone 1.04 uIU/mL (0.360-4.800); Triiodothyronine, Free 1.44 pg/mL (2.18-3.98)
--- NOTE | 2019-05-11 01:52 | NUR ---
PATIENT IS A NEW ADMIT FROM THE ED. TWO PERSON TRANSFER FROM [facility] TO BED. AXOX 3 AND ONE PERSON ASSIST TO BSC.PATIENT ORIENTED TO ROOM AND CALL LIGHT SYSTEM. N/V ON ADMIT WITH BASILIO. ZOFRAN AND TYLENOL GIVEN PER EMAR. TELE IN PLACE AND NSR 98. NS STARTED AT 150 mL/HR INFUSING. CALL LIGHT IN REACH.
--- NOTE | 2019-05-11 04:39 | NUR ---
SHIFT SUMMARY PATIENT IS HAVING INCREASING N/V AND ANXIETY WITH TREMORS. CIWA 7-8 AND ATIVAN IV 2 MG GIVEN PER EMAR. ZOFRAN GIVEN X TWO FOR N/V. PATIENT IS AXO X3 AND ONE ASSIST TO BSC. PATIENT REPORTS DRINKING QUART OF VODKA/DAY AND SMOKING MARIQUANA X TWO BOWELS DAILY. PIV REMAINS INTACT. NS INFUSING AT 150mL/HR X ONE AND NEXT NS AT 200mL/HR. TRAUMA COUNSELLOR REPORTS NSR 98. TAKES MEDICATION WHOLE WITH WATER. PATIENT GIVEN MAALOX PLUS X-S X ONE. PATIENT REPORTS ACID REFLUX T/O SHIFT. PROTONIX GIVEN SCHEDULE PER EMAR. CEDS 1 1/2 PACK/DAY. CALL LIGHT IN REACH. BED IN LOWEST POSITION. WILL CONTINUE TO MONITOR UNTIL DAY SHIFT NURSE ASSUMES CARE.
[2019-05-11 05:14] LABS: Anion Gap 13 mmol/L (6-16); Blood Urea Nitrogen 24 mg/dL (8-24); Bun/Creatinine Ratio 26.7 (12.0-20.0); CO2, Blood 27 mmol/L (21-32); Calcium, Blood 12.1 mg/dL (8.5-10.1); Chloride, Blood 96 mmol/L (98-108); Glomerular Filtration Rate >60 (60-); Glucose, Blood 131 mg/dL (70-99); Potassium, Blood 3.3 mmol/L (3.5-5.5); Sodium, Blood 136 mmol/L (136-145)
--- NOTE | 2019-05-11 05:15 | NUR ---
SQL DATABASE DEVELOPER HR 178-180 AND POSSIBLE A-FIB. HOSPITALIST DR MONTERO NOTIFIED AND REPORTS TO SENT HIM AN EKG. CHARGE NURSE SAI NOTIFED. AXO X 3 SLEEPING BUT AROUSABLE AFTER ATIVAN 2 MG IV AT 04:00. WILL CONTINUE TO MONITOR.
--- NOTE | 2019-05-11 05:19 | NUR ---
VITALS: T=97.5, H=382-338/TELE,R=14, BP= 117/82, O2=95% RA
--- NOTE | 2019-05-11 06:01 | NUR ---
HOSPITALIST DR MONTERO ORDERED METOPROLOL 5 MG IV Q6 FOR HR >130
--- NOTE | 2019-05-11 06:34 | NUR ---
IV METOPROLOL 5 MG GIVEN PER EMAR FOR HR >130. TELE MONITORING. WILL CONTINUE TO MONITOR.
[2019-05-11 13:22] LABS: Bun/Creatinine Ratio 26.7 (12.0-20.0); Calcium, Blood 11.1 mg/dL (8.5-10.1); Creatinine, Blood 1.05 mg/dL (0.40-1.00); Potassium, Blood 4.8 mmol/L (3.5-5.5); Troponin I 0.278 ng/mL (0.000-0.040)
--- NOTE | 2019-05-11 16:33 | NUR ---
SHIFT SUMMARY PATIENT DENIES PAIN, NAUSEA, AND SHORTNESS OF BREATH. PATIENT CONTINUES TO HAVE ELEVATED HR. IV LOPRESSOR GIVEN X2 THIS SHIFT. PT AND OT DEFERRED PATIENT UNTIL TOMORROW. PATIENT NAPPED MOST OF SHIFT. PATIENT UP SBA TO BSC. CALL LIGHT IN REACH, WILL CONTINUE TO MONITOR.
--- NOTE | 2019-05-11 18:20 | NUR ---
Pal Spiritual Care inital visit: Alyson was alone in room and sleeping. She awakens easily to voice and appears lucid. She told me she moved here from [facility]. She has been living in a motel. She has two children "who want nothing to do with me." She has not seen or heard from them in "decades." She also has a brother in [place] and a sister back east. She has not been in contact with them for many years. Alyson states she knows she is nearing end-of-life. 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 She denies regrets or remorse. We completed a POLST and it is awaiting physician signature. DNR, Comfort Measures. She was clear she did not want heroic measures. Alyson appears quite frail and weak, but states she is feeling better. Prayer provided at conclusion of visit. I will remain available.
--- NOTE | 2019-05-11 22:51 | NUR ---
ER SUICIDE ASSESSMENT POSITIVE, SUICIDE ASSESSMENT REDONE HERE ON MEDICAL FLOOR AND IS NEGATIVE. HOSPITALIST CALLED AND NOTIFIED.
[2019-05-12 04:46] LABS: BASOPHILS ABSOLUTE AUTO 0.03 K/mm3 (0.00-0.23); BASOPHILS PERCENT AUTO 0 % (0-2); EOSINOPHILS ABSOLUTE AUTO 0.17 K/mm3 (0.00-0.68); EOSINOPHILS PERCENT AUTO 2 % (0-6); Hematocrit 36.7 % (33.0-51.0); IMMATURE GRAN ABSOLUTE AUTO 0.04 K/mm3 (0.00-0.10); IMMATURE GRAN PERCENT AUTO 0 % (0-1); LYMPHOCYTES ABSOLUTE AUTO 0.88 K/mm3 (0.84-5.20); LYMPHOCYTES PERCENT AUTO 8 % (21-46); MONOCYTES PERCENT AUTO 7 % (4-13); Mean Corpuscular HGB 29.6 pg (26.0-34.0); Mean Corpuscular HGB Conc 32.7 g/dL (31.5-36.5); Mean Corpuscular Volume 90 fL (80-100); Mean Platelet Volume 10.1 fL (9.1-12.4); NEUTROPHILS ABSOLUTE AUTO 9.19 K/mm3 (1.96-9.15); NEUTROPHILS PERCENT AUTO 83 % (41-73); Platelet Count 275 K/mm3 (150-400); Red Blood Cell Count 4.06 M/mm3 (3.80-5.20); White Blood Cell Count 11.11 K/mm3 (4.00-11.30)
[2019-05-12 05:04] LABS: Bun/Creatinine Ratio 26.3 (12.0-20.0); Creatinine, Blood 1.14 mg/dL (0.40-1.00); Magnesium, Blood 1.8 mg/dL (1.6-2.4)
--- NOTE | 2019-05-12 05:50 | NUR ---
SHIFT SUMMARY PT HAS SLEPT WELL DURING THE NIGHT, CIWA'S RANGING FROM 0-3. PT RESPONDING ONLY TO VOICE FIRST HALF OF SHIFT. HAS BEEN UP TO BSC WITH AO1 SEVERAL TIMES DURING THE NIGHT. PT TELE STILL READING RATE IN THE 130'S, UNABLE TO GET RATE TO COME DOWN WITH IV LOPRESSOR AND ORAL LOPRESSOR. PT ASYMPTOMATIC WITH RATE. WILL CONTINUE TO MONITOR.
--- NOTE | 2019-05-12 18:11 | NUR ---
SHIFT SUMMARY THE PATIENT PRESENTED THIS SHIFT A&O X3, VITAL WNL, AND WITH CLEAR LUNGS. THE PATIENT WAS MOVED TO A DMR STATUS BY HER DOCTOR THIS SHIFT. THE PATIENT HAD ELEVATED C-WAW SCORES AND RECEIVED MEDICATIONS PER ORDERS FOR THEM. THE PATIENT IS EATING HER DINNER AND VISITING WITH HER FAMILY AT THIS TIME, WILL CONTINUE TO MONITOR.
--- NOTE | 2019-05-13 06:31 | NUR ---
SHIFT SUMMARY PT HAS BEEN HAVING LOW B/P'S DURING THE NIGHT WITH HR IN THE 130'S-140'S. HOSPITALIST NOTIFIED AND ORDER RECEIVED FOR LOPRESSOR 2.5 MG X2. ORAL METOPROLOL HELD DUE TO SYSTOLIC BEING BELOW 110. B/P THIS AM IN THE 130'S. PT SLEPT WELL. HAS IVF'S INFUSING PER PUMP AT 100ML/HR. USES BSC WITH ASSIST OF 1 STAFF. BED ALARM ON. CIWA'S BEEN 0-2, PT HAS BEEN SLEEPING. WILL CONTINUE TO MONITOR.
--- NOTE | 2019-05-13 10:40 | NUR ---
TRANSFER NOTE PT TRANSFERRED TO ICU ROOM 8 PCU STATUS FROM MEDICAL FLOOR ROOM 362 WITH AFIB RVR. PT OPENING EYES SPONTANEOUSLY AND RESPONDING TO QUESTIONS, FOLLOWING COMMANDS APPROPRIATELY. PT ORIENTED TO ALL BUT DATE, STATED "MAY [birth year], 2000" "I MEAN 2018". CIWA 9. PT MEDICATED WITH LIBRIUM 25MG PO PER ORDERS. PT REPORTED "SOME NAUSEA", MEDICATED PER ORDERS WITH ZOFRAN. PT REQUESTING ATIVAN, STATING "I'M IN WITHDRAWALS AND NEED THE ATIVAN", PT UNHAPPY WHEN INFORMED THAT ATIVAN IS NOT DUE TO BE GIVEN, STATED "BUT I'M IN PAIN AND I NEED ATIVAN OR TYLENOL WITH CODEINE". PT REPORTS HAVING CHRONIC BACK AND LEG PAIN. OFFERED PT TYLENOL, PT REFUSED. PT PLACED ON MONITOR, RHYTHM SHOWING AFIB WITH HR IN 130S. BP STABLE. SEE FLOWSHEET FOR VS. PT DENIES CHEST PAIN/PRESSURE. PT DENIES SOB/DYSPNEA. LS CLEAR T/O. BREATHING E/U ON RA. SPO2 96% ON RA. RADIAL PULSES STRONG AND EQUAL BILATERALLY. PEDAL PULSES FAINT BUT EQUAL BILATERALLY. PT REPORTS NUMBNESS AND TINGLING TO BLE AND HANDS AT BASELINE. SKIN OVERALL C/D/I, SCATTERED BRUISING TO BUE. PIV TO RFA, FLUSHES EASILY. NS RUNNING AT 100ML/HR PER ORDERS. CARDIZEM GTT STARTED AT 10MG/HR, TO BE TITRATED TO EFFECT. PT MAEW, REPOSITIONS SELF. PT REQUESTED TO USE BSC, ASSISTED TO DANGLE AND INSTRUCTED TO SIT THERE FOR A SECOND TO CATCH HER BEARINGS SHE REPORTED DIZZINESS WITH THIS REPOSITIONING. ONCE PT'S DIZZINESS RESOLVED SHE STOOD AND PIVOTED TO BSC, UNSTEADY ON HER FEET. PT VOIDED WITHOUT EVENT AND WAS ASSISTED BACK TO BED. ABD NORMAL PER PT, SOFT, NONTENDER. BT X4, HYPERACTIVE. BED IN LOWEST POSITION, UPPER SIDE RAILS RAISED AND BED ALARM ON. CALL LIGHT IN REACH. WILL CONT TO MONITOR PT.
--- NOTE | 2019-05-13 11:16 | NUR ---
REPORT OFF REPORT GIVEN TO MICHEL BEGUM. SHY TO ASSUME CARE OF PT AT THIS TIME.
--- NOTE | 2019-05-13 11:19 | NUR ---
REC'D REPORT FROM MICHEL MCDOWELL AND ASSUMING CARE OF PT
--- NOTE | 2019-05-13 12:43 | NUR ---
PT UPDATE: PT APPEARS MORE RELAXED/LESS ANXIOUS. TALKS EASLIY AND ABLE TO MAKE NEEDS KNOWN. PT IS ALERT AND ORIENTED X3, BUT IS FORGETFUL AT THIS TIME.
--- NOTE | 2019-05-13 13:03 | NUR ---
PT UPDATE: PT WITH INCREASING ANXIETY AND INSISTING SHE NEEDS TO BE MEDICATED WITH ATIVAN. PT SLEEPS EASILY WHEN UNDISTURBED, HOWEVER, IS VERY ANXIOUS/AGITATED/RESTLESSNESS WHEN AWAKE AND CONSTANTLY ASKING FOR ATIVAN/LIBRIUM/ AND/OR PAIN MEDICATION (FOR GENERAL PAIN). WHEN PT INFORMED SHE DOES NOT HAVE PAIN MEDS ORDERED, PT REQUESTS ATIVAN FOR PAIN. EDUCATED PT THAT ATIVAN WAS NOT MEANT FOR PAIN. PT THEN IMMEDIATELY ASKS FOR ATIVAN R/T GOING THROUGH DT'S.
--- NOTE | 2019-05-13 16:33 | NUR ---
SHIFT SUMMARY: PT SOMEWHAT DROWSY T/O SHIFT, BUT AWAKENS EASILY. PT FALLS ASLEEP WHEN UNDISTURBED, HOWEVER, IS QUICKLY CALLING ASKING FOR ATIVAN/LIBRIUM WHENEVER PT IS AWAKE, EVEN WHEN NEXT DOSE IS NOT DUE. PT IS THREE AFFILIATED BUT DOES NOT WEAR HEARING AIDS PER CHOICE. PT AT TIMES C/O BACK PAIN, UNABLE TO FURTHER DISCRIBE. WHEN ASKED ABOUT IT, PT REPORTS, "OH YOU KNOW, IT'S REGULAR OVERALL PAIN." PT ANSWERS QUESTIONS APPROPRIATELY BUT SLOWLY AND WITH MUMBLED SPEECH THAT IS DIFFICULT TO UNDERSTAND WITHOUT PT WEARING DENTURES. CIWA 12-16. WHEN AWAKE PT HAS VISUALIZED SEIZURES. REMAINS UNSTEADY AND SBA WITH TNX TO BSC, BUT CALLS APPROPRIATELY FOR HELP. PT REPORTS SHE DOES WANT TO CEASE ALCOHOL AND REPORTS SHE DRINKS A QAURT/DAY. LUNGS ARE CLEAR T/O BILATERALLY. SATS >90% ON RA. HR IRREGULAR, ATRIAL FLUTTER-90'S RANGE WITH CARDIAZEM GTT CURRENTLY @ 5MG/HR. IF PT REMAINS <100, WILL CALL DR FOR CONVERSION FROM GTT TO PO CARDIAZEM. NS @ 100ML/HR. ABD SOFT/ROUND/NON-TENDER. BT'S X4 QUADS. PT HAS GOOD APPETITE, WITH PERSISTENT MILD NAUSEA, PER PT. NO BM THIS SHIFT. PT VOIDS SMALL AMTS PER BSC. -DNR STATUS -TX ETOH W/D WITH ATIVAN/LIBRIUM -FALL RISK-FOLLOW HIGH RISK PROTOCOL
--- NOTE | 2019-05-13 17:03 | NUR ---
REPORTED OFF TO MICHEL HANEY WHOM WILL ASSUME CARE OF THIS PT FOR THE REMAINDER OF THE SHIFT. PT'S HR REMAINS A CONTROLLED ATRIAL FIB/FLUTTER WITH CARDIAZEM GTT @ 5MG/HR.
--- NOTE | 2019-05-13 18:31 | NUR ---
PT ASSISTED TO BSC. VERY UNSTABLE GAIT. 200CC URINE. PT BOOSTED IN BED FOR DINNER. SPEECH SLURRED, PT REQUEST ATIVAN FOR "MY VERY SERIOUS ALCOHOL WITHDRAWAL". PT DOES HAVE TREMOR, C/O PAIN TO BACK. TYLENOL OFFERED, PT DECLINED, ASKING FOR ATIVAN INSTEAD. PT AGREED SHE WOULD EAT FIRST PRIOR TO ATIVAN SHE WAS VERY SLEEPY AT TIME OF ASSESSMENT AND WAS ALSO INTERESTED IN EATING DINNER. PT HYPERFOCUSED ON ATIVAN.
--- NOTE | 2019-05-13 21:32 | NUR ---
ASSUMED PT CARE AT 1900 DURING REPORT WITH OFF GOING RN PT WAS NOTED TO BE HOLLERING FROM HER ROOM REGARDING ADMINISTRATION OF ATIVAN. DAY RN INFORMED ME THAT PT WAS SOMNOLENT FOR MOST OF THE DAY AND WOKE UP HUNGRY; THEREFORE, PT WAS TO EAT HER DINNER BEFORE ACQUIRING MEDICATION THAT WOULD MAKE HER DROWSY AND AFTER DINNER ETOH W/D SX'S WOULD BE REASSESSED AND DETERMINED IF PT WAS IN NEED OF ATIVAN. PT WAS REPEATEDLY USING CALL LIGHT TO REQUEST ATIVAN. EDUCATED PT HOW THE MEDICATION WAS ORDERED IN REGARDS TO HER ETOH W/D SX'S. PT STATED, "OH, I'LL HAVE THEM." PT STARTED BECOMING AGITATED WITH A LABILE MOOD. PT STATED SHE WAS SWEATY, HOT, AND TREMULOUS AND NEEDED HER ATIVAN. UPON MY ASSESSMENT CIWA WAS NOTED TO BE A 3. PT DID NOT APPEAR SWEATY, NO ELEVATED TEMPERATURE, AND UPON PT HOLDING MY FINGERS, NO UNDERLYING TREMOR WAS FELT. ADMINISTERED LIBRIUM 25MG PO IN RELATION TO CIWA SCORE AND D/T WHAT PT WAS REPORTING. PT IMMEDIATELY ASKED WHY I WASN'T GIVING HER ATIVAN. EDUCATED PT ON LIBRIUMS LONGER ACTING EFFECTS COMPARED TO ATIVAN; PT ACKNOWLEDGED, BUT THEN ASKED WHEN SHE WOULD BE DUE FOR SOME ATIVAN. EDUCATED PT AGAIN IN REGARDS TO HOW THE MEDICATION WAS ORDERED. PT AGAIN BECAME AGITATED. REASSURED PT SHE WAS JUST MEDICATED WITH THE SAME CLASSIFICATION TYPE OF MEDICATION ATIVAN, BUT IT WOULD COVER HER SX'S FOR A LONGER PERIOD OF TIME. PT THEN SAID YA AND REQUESTED THE LIGHT TO BE TURNED OFF. CALL LIGHT IS WITHIN REACH; PT IS ABLE TO MAKE HER NEEDS KNOWN, WELL REPOSITION SELF INDEPENDENTLY IN BED. GARRET GTT IS INFUSING AT 5MG/HR WITH A HR 80-100'S; 60'S WHEN PT IS SLEEPING. SHE REMAINS IN AFLUTTER.
--- NOTE | 2019-05-14 04:45 | NUR ---
END OF SHIFT SUMMARY PT HAS BEEN SLEEPING MOST OF SHIFT. WHEN SHE DOES WAKE UP SHE REQUESTS BEDSIDE COMMODE. MEDICATED X1 WITH LIBRIUM. CIWA'S HAVE CONTINUED TO BE 0. CARDIZEM HAS BEEN OFF SINCE 2352; HR HAS MAINTAINED A FLUTTER 60-80'S UP TO 90-100'S WITH ACTIVITY. BLOOD PRESSURES HAVE REMAINED STABLE. PT TO TRANSFER TO PCU 10; WILL CALL FOR REPORT.
--- NOTE | 2019-05-14 05:00 | NUR ---
CALLED REPORT TO MICHEL VILLAGRAN
--- NOTE | 2019-05-14 06:22 | NUR ---
ASSUMED CARE AND SHIFT SUMMARY PT TRANSFERRED FROM ICU. REPORT TAKEN FROM ORNAMENTAL METAL WORKER APPRENTICE. PT ARRIVED TO UNIT ON HOSP BED, PT LETHARGIC AND SPEECH IS SLOW AND SLIGHTLY SLURRED UPON ARRIVAL. PER ORNAMENTAL METAL WORKER APPRENTICE PT HAS BEEN SLEEPING AND LETHARGIC T/O NIGHT. PT ALSO CONTINUALLY REQUESTING ATIVAN UPON ARRIVAL FOR ETOH WITHDRAWAL. PT APPEARS TO BE AT EASE IN BED, NO TREMORS NOTED, OR FELT WHEN HANDS ARE HELD. NO VISIBLE SWEATING, PT EYES ARE CLOSED AND PT APPEARS TO BE FALLING ASLEEP WHILE THIS RN IS SPEAKING TO PT. PT DOES REPORT "SEEING THINGS" IN ROOM. WHEN ASKED WHAT PT IS SEEING PT RESPONDS "JUST THINGS, I NEED ATIVAN". PT AGAIN ASKED TO ELABORATE ON HALLUCINATIONS IN ROOM, PT REPORTS "I DONT KNOW, MONKEYS AND A CIRCUS OR SOMETHING, I AM WITHDRAWING I NEED ATIVAN". PT HAS EYES CLOSED AND SLURRED SPEECH DURING THIS STATEMENT. RESP EVEN UNLBAORED ON RA W/ SATS >92%, DENIES CP. PT SETTLED INTO ROOM AND BELONGINGS PLACED AT BEDSIDE. PT SLEEPING SOUNDLY AT THIS TIME. BED ALARM ON FOR SAFETY. CALL LIGHT IS WITHIN REACH.
--- NOTE | 2019-05-14 07:05 | NUR ---
RECVD REPORT FROM FROM PREVIOUS SHIFT MICHEL VILLAGRAN, PTSLEEPING IN BED, CALL LIGHT WITHIN REACH, BED RAILS UP X 2
[2019-05-14 07:17] LABS: Anion Gap 5 mmol/L (6-16); Blood Urea Nitrogen 24 mg/dL (8-24); Bun/Creatinine Ratio 24.9 (12.0-20.0); CO2, Blood 22 mmol/L (21-32); Calcium, Blood 8.2 mg/dL (8.5-10.1); Chloride, Blood 112 mmol/L (98-108); Creatinine, Blood 0.96 mg/dL (0.40-1.00); Glomerular Filtration Rate >60 (60-); Glucose, Blood 87 mg/dL (70-99); Phosphorus, Blood 2.9 mg/dL (2.5-4.9); Potassium, Blood 3.8 mmol/L (3.5-5.5); Sodium, Blood 139 mmol/L (136-145)
[2019-05-14 07:46] LABS: BASOPHILS ABSOLUTE AUTO 0.04 K/mm3 (0.00-0.23); BASOPHILS PERCENT AUTO 1 % (0-2); EOSINOPHILS ABSOLUTE AUTO 0.47 K/mm3 (0.00-0.68); EOSINOPHILS PERCENT AUTO 6 % (0-6); Hematocrit 36.1 % (33.0-51.0); Hemoglobin 10.9 g/dL (11.5-16.0); IMMATURE GRAN ABSOLUTE AUTO 0.01 K/mm3 (0.00-0.10); IMMATURE GRAN PERCENT AUTO 0 % (0-1); LYMPHOCYTES ABSOLUTE AUTO 0.87 K/mm3 (0.84-5.20); LYMPHOCYTES PERCENT AUTO 12 % (21-46); MONOCYTES ABSOLUTE AUTO 0.51 K/mm3 (0.16-1.47); MONOCYTES PERCENT AUTO 7 % (4-13); Mean Corpuscular HGB 29.7 pg (26.0-34.0); Mean Corpuscular HGB Conc 30.2 g/dL (31.5-36.5); Mean Platelet Volume 10.4 fL (9.1-12.4); NEUTROPHILS ABSOLUTE AUTO 5.54 K/mm3 (1.96-9.15); NEUTROPHILS PERCENT AUTO 75 % (41-73); Platelet Count 179 K/mm3 (150-400); RDW Standard Deviation 64.7 fL (35.1-46.3); Red Blood Cell Count 3.67 M/mm3 (3.80-5.20); White Blood Cell Count 7.44 K/mm3 (4.00-11.30)
[2019-05-14 08:04] LABS: Mean Corpuscular Volume 98 fL (80-100)
--- NOTE | 2019-05-14 10:00 | NUR ---
pt requests her wallet and clothing, not in room. relief charge nurse called ICU who will check in pt's previous room for belongings
--- NOTE | 2019-05-14 12:56 | NUR ---
pt transferred to medical floor, report given to MICHEL Nguyen
--- NOTE | 2019-05-14 12:57 | NUR ---
pt's belongings located and sent to medical floor
--- NOTE | 2019-05-14 13:13 | NUR ---
ASSUMED CARE OF PT- PT TRANSFERED FROM PCU TO MEDICAL FLOOR. TELEPHONE REPORT RECIEVED FROM DIESEL MECHANIC [employer]ARM DK Pérez PER REPORT PT CIWAS HAVE BEEN LOW RATED AT A 4 OR LESS. PT BECAME TACHY AND AGITATED AFTER REQUESTING ATIVAN SO RECIEVED 2MG IV ATIVAN. PER REPORT SHE WAS SLEEPING AT THE TIME OF REPORT. PT WOKE ON ARRIVAL TO MEDICAL FLOOR AND IMMEDIATELY STATED "I WANT MORE ATIVAN."
--- NOTE | 2019-05-14 18:41 | NUR ---
SHIFT SUMMARY- PT ALERT AND ORIENTED X 3. PT HAS NO C/O PAIN, NO S&S OF ACUTE ISSUE AT THIS TIME. MEDICATED PT WITH 1MG OF IV ATIVAN. SHE WAS NOT HAPPY ABOUT THE LOW DOSE, EXPLAINED THE NEED FOR LOW DOSE D/T HER SYMPTOMS IMPROVING FROM THE WITHDRAWL. PT HR SPIKED UP INTO THE 140'S, MEDICATED WITH IV CARDIZEM. PT ON TELE. PT WENT TO SLEEP AFTER THE CARDIZIEM THEM SHE GOT ANGRY THAT STAFF DID NOT WAKE HER FOR ATIVAN. PT CALMED WHEN SHE RECIEVED THE MEDICINE. SHE RATED A CIWA OF 8 AT THAT TIME, STATED HEADACHE 9/10, FELT LIKE HER SKIN WAS CRAWLING ON HER LEGS AND BACK, PALMS WERE MOIST AND VERY MILD TREMMORS WERE PRESENT. HR CAME DOWN TO 108 AFTER CARDIZIEM.
--- NOTE | 2019-05-15 07:22 | NUR ---
05/15/19 0650 AWAKE AND CIWA= 12. ATIVAN 1 MG GIVEN IV. VITALS STABLE. ASSISTED TO BSC FOR QS VOIDING. SLEPT FAIR DUE TO PAIN AND ANXIETY.
--- NOTE | 2019-05-15 08:02 | NUR ---
ASSUMED CARE OF PT- PT HR RUNNING AFIB IN THE 80'S PER [employer] DONAVON, RECIEVED MARCE PANTOJA LAST NIGHT. RECIEVED REPORT FROM NIGHT RM DK. PT MEDICATED WITH ATIVAN AT SHIFT CHANGE. PT C/O PAIN MEDICATED WITH TYLENOL, CONVEYED TO DAY SHIFT RN THE TYLENOL "DON'T DO NOTHIN'" PT SPEECH SLURRED AND HER APPEARANCE IS RELAXED UNTIL STAFF ASK ABOUT PAIN. PT WANTS MORE ATIVAN. DOES NOT APPEAR TO BE NEEDED.
--- NOTE | 2019-05-15 17:56 | NUR ---
SHIFT SUMMARY- PT ALERT AND ORIENTED. HAS BEEN SLEEPING ALL SHIFT. MEDICATED WITH TYLENOL FOR PAIN, PT HAS LIBRIUM SCHEDULED BID. CIWAS NEGATIVE SCORING 3-4. DR VALDEZ'D ATIVAN AND CIWAS TODAY. PT VERY ANGRY USING FOUL LANGUAGE ABOUT DR NOT GIVING HER ATIVAN. PT SEEMS TO BE GETTING PHYSICALLY STRONGER THE DAY GOES ON. PT STATED SHE HAS A QUART OF VODKA AT HOME AND SHE CAN'T WAIT TO GET TO IT. PT FRIENDS BROUGHT HER HER PAJAMAS AND MAKEUP. STAFF EXPLAINED D/T PT CURRENT BOUTS OF INCONTINENCE PAJAMA PANTS COULD EASILY BECOME SOILED AND THE SHIRT DOES NOT HAVE A POCKET FOR TELE. PT WAS AGREEABLE TO NOT WEAR HER HOME CLOTHES UNTIL DISCHARGE. PLAN IS FOR PT TO D/C TOMORROW.
--- NOTE | 2019-05-16 00:29 | NUR ---
05/16/19 0030 Pt c/o leg cramps. MEDICATED WITH PLAIN TYLENOL PER DEC. PT BECAME VERBALLY ABUSIVE WITH RN WHEN SHE FOUND OUT THAT SHE COULD ONLY GET TYLENOL #3 EVERY 8 HOURS.
--- NOTE | 2019-05-16 05:19 | NUR ---
05/16/19 0450 CALLED FOR HELP TO BSC FOR VOIDING. FOOD AND BEVERAGE OUTLETS MANAGER ASSISTED HER. C/O SHOULDERS,BACK AND LEGS DISCOMFORT AND MEDICATED PER MAR. STATES SHE "HAD A NIGHTMARE THAT I TREATED THE NURSES RUDE LAST NIGHT". SHE APOLOGIZED FOR HER PRIOR BEHAVIOR. WATCHING TV NOW.
--- NOTE | 2019-05-16 12:35 | NUR ---
AMA- PT LEFT A [address] ROQUE WROTE DISCHARGE ORDERS. CALLED TAXI AND INSISTED ON SIGNING HERSELF OUT- ANGRY THAT STAFF WOULDN'T GET HER PAIN PILLS AND REFUSED TYLENOL. ANGRY AND YELLING "WHAT GOOD ARE YOU ANYWAY- I MAY WELL GO HOME" PT ASSISTED OUT IN WHEELCHAIR WITH BELONGINGS TO TAXI OUTSIDE. NOTIFIED DR ROQUE OF PT'S ABRUBT LEAVING AMA.
--- NOTE | 2019-05-16 12:52 | NUR ---
DR ROQUE ASKED PT BE CONTACTED BY PHONE IN ATTEMPTS TO GET PT PERSCRIPTIONS FILLED AT HER PHARMACY- UNABLE TO LOCATE A PHONE # OR LOCATION FOR PT.
[2019-05-16] MEDS ORDERED: DILT120ERA PO (12:59)
[2019-05-16] MEDS ORDERED: METO50 PO (13:01)
[2019-05-16] MEDS ORDERED: QUET25 PO (13:02)
[2019-05-16] MEDS ORDERED: B-1100 MG PO (13:02)
== END 2019-05-16 09:48 | disposition left against medical advice (07) | DRG 281 ==
LOC: ER 19:45 → MEDS 19:46 → ICUE 05-13 09:50 → PCU 05-14 05:18 → MEDS 05-14 12:48 → ENPENDDIS 05-16 09:47 → MEDS 05-16 09:48
PROVIDERS: Emergency Medicine; Internal Medicine; ADMIT Hospitalist
DX: I21.4 Non-ST elevation (NSTEMI) myocardial infarction (principal); F10.239 Alcohol dependence with withdrawal, unspecified; N17.9 Acute kidney failure, unspecified; E83.52 Hypercalcemia; F31.9 Bipolar disorder, unspecified; E87.6 Hypokalemia; I48.0 Paroxysmal atrial fibrillation; I10 Essential (primary) hypertension; Z66 Do not resuscitate; Z86.711 Personal history of pulmonary embolism; Z59.0 Homelessness; Z87.891 Personal history of nicotine dependence
CPT/HCPCS: 36415; 71046; 80048; 80053; 80069; 82306; 82652; 83735; 83970; 84439; 84443; 84481; 84484; 85025; 93005; 93010; 93306; 96361; 96372; 96374; 96375; 96376; 99285-25; A9270; G0378; G0480; J1650; J2060; J2405; J3475; J3480; J7030

== ENCOUNTER 2019-05-25 12:59 | Inpatient (IN) | payer MEDICARE ==
[~2019-05-25] VITALS: Ht 167.6 cm; Wt 60.4 kg
[~2019-05-25 12:59] MED LIST changes: +DILT120ERA PO; +METO50 PO; +QUET25 PO
[2019-05-25] MEDS ORDERED: AMLO5 PO (13:34)
[2019-05-25 13:54] LABS: BASOPHILS PERCENT AUTO 1 % (0-2); EOSINOPHILS ABSOLUTE AUTO 0.12 K/mm3 (0.00-0.68); EOSINOPHILS PERCENT AUTO 1 % (0-6); Hematocrit 30.6 % (33.0-51.0); IMMATURE GRAN ABSOLUTE AUTO 0.04 K/mm3 (0.00-0.10); IMMATURE GRAN PERCENT AUTO 0 % (0-1); LYMPHOCYTES ABSOLUTE AUTO 0.79 K/mm3 (0.84-5.20); LYMPHOCYTES PERCENT AUTO 9 % (21-46); MONOCYTES ABSOLUTE AUTO 0.47 K/mm3 (0.16-1.47); MONOCYTES PERCENT AUTO 5 % (4-13); Mean Corpuscular HGB 29.3 pg (26.0-34.0); Mean Corpuscular HGB Conc 32.7 g/dL (31.5-36.5); Mean Platelet Volume 9.6 fL (9.1-12.4); NEUTROPHILS ABSOLUTE AUTO 7.67 K/mm3 (1.96-9.15); NEUTROPHILS PERCENT AUTO 84 % (41-73); Platelet Count 531 K/mm3 (150-400); RDW Coefficient Variation 17.8 % (11.7-14.2); RDW Standard Deviation 58.4 fL (35.1-46.3); Red Blood Cell Count 3.41 M/mm3 (3.80-5.20); White Blood Cell Count 9.19 K/mm3 (4.00-11.30)
[2019-05-25 13:56] LABS: Mean Corpuscular Volume 90 fL (80-100)
[2019-05-25 14:09] LABS: Alanine Aminotransfer (ALT/SGP 36 U/L (12-78); Albumin, Blood 2.9 g/dL (3.4-5.0); Albumin/Globulin Ratio 0.7 (0.8-1.8); Alk Phos 193 U/L (50-136); Anion Gap 11 mmol/L (6-16); Aspartate Aminotrans (AST/SGOT 28 U/L (12-37); Bilirubin, Total 0.3 mg/dL (0.1-1.0); Blood Urea Nitrogen 12 mg/dL (8-24); Bun/Creatinine Ratio 15.4 (12.0-20.0); CO2, Blood 22 mmol/L (21-32); Calcium, Blood 8.9 mg/dL (8.5-10.1); Chloride, Blood 104 mmol/L (98-108); Creatinine, Blood 0.78 mg/dL (0.40-1.00); Globulin, Blood 4.1 g/dL (2.2-4.0); Glomerular Filtration Rate >60 (60-); Glucose, Blood 93 mg/dL (70-99); Potassium, Blood 3.7 mmol/L (3.5-5.5); Sodium, Blood 137 mmol/L (136-145)
[2019-05-25 14:12] LABS: Troponin I 0.025 ng/mL (0.000-0.040)
[2019-05-25] MEDS ORDERED: LORA.5 (14:37)
[2019-05-25 18:04] LABS: Magnesium, Blood 2.2 mg/dL (1.6-2.4)
--- NOTE | 2019-05-25 21:13 | NUR ---
ASSUMED CARE OF PATIENT AT APPROXIMATELY 2009 FROM ED RN DONAVON Suarez PATIENT ARRIVED TO UNIT VIA STRETCHER; ONE ASSIST FROM ED STRETCHER TO PCU STRETCHER. PATIENT ALERT AND ORIENTED; IRRITABLE. DURING MEDICATION RECONCILE PATIENT REPROTS SHE TAKES "ANYTHING WITH CODEINE" AND STATES SHE TAKES ATIVAN; LATER ASKS "DO YOU THINK I CAN GET SOME?". PATIENT REPORTS PAIN IN FEET; REPORTED BY ASPHALT SPREADER THAT ONLY PRESCRIPED TYLENOL PER RENEWABLE ENERGY PROJECT MANAGER; MEDICATED PER EMAR. PATIENT ALSO REPORTS N/T IN HAND AND FEET; REPORTS FEET N/T STARTED WITH PAIN ABOUT NINE DAYS AGO; PATIENT TAKES GABAPENTIN AT HOME BUT REPORTS SHE CAN AFFORD MEDICATIONS BUT SHE HAS BEEN OUT OF THE GABAPENTIN FOR "TOO LONG". PATIENT REPORTS SHE SMOKES 1PACK / DAY BUT IS NOT INTERESTED IN QUITTING; PATIENT REPORTS SHE DRINKS 1-2 BEERS A DAY; LAST DRINK 05/24 AND INTERESTED IN QUITTING DRINKING AND REFUSED INFORMATION; "I KNOW WHAT NEEDS TO BE DONE"; NO S/S OF WITHDRAWAL AT THIS TIME. PATIENT DENIES DIZZINESS AND NAUSEA; HAD SNACK GIVEN UPON ARRIVAL PER REQUEST. ADMISSION COMPLETE. AFLUTTER ON TELE; 110-120'S ON TELE; CARDIZEM AT 10ML/HR; REPORTED TO TURN OFF CARDZIEM AT ONCE HR OR SBP BELOW 100; PO CARDIZEM GIVEN IN ED. 1X PIV INFUSING CARDIZEM. OXYGEN SATURATION ABOVE 90% ON ROOM AIR; WAS ON 2LPM VIA NC IN ED. [facility]; GIVEN IV LASIX IN ED. PATIENT CURRENTLY RESTING IN BED; CALL LIGHT IN REACH; BED IN LOWEST POSISTION; BED ALARM ON; WILL CONTINUE TO MONITOR AND ASSESS UNTIL END OF SHIFT.
--- NOTE | 2019-05-25 21:39 | NUR ---
PATIENT REFUSING SCD'S AND TYLER; REPORTS SHE DOESNT LIKE ANYTHING TIGHT ON HER LEGS.
[2019-05-26 00:01] LABS: U Amphetamine Screen Not Detected; U Barbituate Screen Not Detected; U Benzodiazapine Screen DETECTED; U Buprenorphine Screen Not Detected; U Cannabinoids Screen DETECTED; U Cocaine Screen Not Detected; U Methadone Screen Not Detected; U Methamphetamine Screen Not Detected; U Opiates Screen Not Detected; U Oxycodone Screen Not Detected; U Phencyclidine Screen Not Detected; U Propoxyphene Screen Not Detected
[2019-05-26 03:42] LABS: BASOPHILS ABSOLUTE AUTO 0.09 K/mm3 (0.00-0.23); BASOPHILS PERCENT AUTO 1 % (0-2); EOSINOPHILS ABSOLUTE AUTO 0.33 K/mm3 (0.00-0.68); EOSINOPHILS PERCENT AUTO 5 % (0-6); Hematocrit 29.9 % (33.0-51.0); Hemoglobin 9.4 g/dL (11.5-16.0); IMMATURE GRAN ABSOLUTE AUTO 0.02 K/mm3 (0.00-0.10); IMMATURE GRAN PERCENT AUTO 0 % (0-1); LYMPHOCYTES ABSOLUTE AUTO 1.07 K/mm3 (0.84-5.20); LYMPHOCYTES PERCENT AUTO 16 % (21-46); MONOCYTES ABSOLUTE AUTO 0.62 K/mm3 (0.16-1.47); MONOCYTES PERCENT AUTO 9 % (4-13); Mean Corpuscular HGB 28.8 pg (26.0-34.0); Mean Corpuscular HGB Conc 31.4 g/dL (31.5-36.5); Mean Corpuscular Volume 92 fL (80-100); Mean Platelet Volume 9.6 fL (9.1-12.4); NEUTROPHILS ABSOLUTE AUTO 4.56 K/mm3 (1.96-9.15); NEUTROPHILS PERCENT AUTO 68 % (41-73); Platelet Count 497 K/mm3 (150-400); RDW Coefficient Variation 18.1 % (11.7-14.2); RDW Standard Deviation 60.3 fL (35.1-46.3); Red Blood Cell Count 3.26 M/mm3 (3.80-5.20); White Blood Cell Count 6.69 K/mm3 (4.00-11.30)
[2019-05-26 04:05] LABS: Alanine Aminotransfer (ALT/SGP 29 U/L (12-78); Albumin, Blood 2.6 g/dL (3.4-5.0); Albumin/Globulin Ratio 0.7 (0.8-1.8); Alk Phos 166 U/L (50-136); Anion Gap 7 mmol/L (6-16); Aspartate Aminotrans (AST/SGOT 18 U/L (12-37); Bilirubin, Total 0.3 mg/dL (0.1-1.0); Blood Urea Nitrogen 17 mg/dL (8-24); Bun/Creatinine Ratio 18.4 (12.0-20.0); CO2, Blood 28 mmol/L (21-32); Calcium, Blood 8.2 mg/dL (8.5-10.1); Chloride, Blood 103 mmol/L (98-108); Creatinine, Blood 0.92 mg/dL (0.40-1.00); Globulin, Blood 3.7 g/dL (2.2-4.0); Glomerular Filtration Rate >60 (60-); Glucose, Blood 126 mg/dL (70-99); Potassium, Blood 4.1 mmol/L (3.5-5.5); Sodium, Blood 138 mmol/L (136-145); Total Protein, Blood 6.3 g/dL (6.4-8.2)
--- NOTE | 2019-05-26 05:08 | NUR ---
PATIENT SLEPT ABOUT SIX HOURS LAST NIGHT; VSS; PIV S/L. PATIENT REQUESTED SLEEP AID BEFORE MIDNIGHT; CALLED ANGIOGRAPHY TECHNOLOGIST JESSA; ORDERS RECIEVED; PATIENT ASLEEP WHEN ATTEMPTING TO GIVE MELATONIN; PATIENT IRRITABLE DURING AM VITAL SIGNS. WILL CONTINUE TO MONITOR AND ASSESS UNTIL END OF SHIFT.
--- NOTE | 2019-05-26 17:31 | NUR ---
SHIFT SUMMARY PT ALERT AND ORIENTED. VS STABLE. O2 SATS REMAIN ABOVE 90% ON RA. PT COMPLAINS OF PAIN IN HER FEET AND MEDICATED PER EMAR. HR HAS BEEN 100-110 AFLUTTER. BP STABLE. WILL CONTINUE TO MONITOR AND REPORT TO ONCOMING RN. CALL LIGHT IN REACH.
--- NOTE | 2019-05-26 21:55 | NUR ---
ASSUMED CARE OF PATIENT AT APPROXIMATELY 1905 FROM JESSI Pérez RN. PATIENT ALERT AND ORIENTED; IRRITABLE AT TIMES. PATIENT REPORTS PAIN IN FEET; REPORTED; MEDICATED PER EMAR. PATIENT ALSO REPORTS N/T IN HAND AND FEET; REPORTS N/T IN FEET. LAST DRINK 05/24; NO S/S OF WITHDRAWAL AT THIS TIME. PATIENT DENIES DIZZINESS AND NAUSEA. AFLUTTER ON TELE; AVERAGE OF 70-90'S; OCCASIONALLY INCREASES TO 110-120'S; OXYGEN SATURATION ABOVE 90% ON ROOM AIR. PATIENT SBA TO BEDSIDE COMMODE. PIV S/L. PATIENT CURRENTLY RESTING IN BED; CALL LIGHT IN REACH; BED IN LOWEST POSISTION; BED ALARM ON; WILL CONTINUE TO MONITOR AND ASSESS UNTIL END OF SHIFT.
--- NOTE | 2019-05-27 05:58 | NUR ---
NO ACUTE CHANGES TO REPORT. PATIENT SLEPT ABOUT EIGHT HOURS. VSS. WILL CONTINUE TO MONITOR AND ASSESS UNTIL END OF SHIFT.
--- NOTE | 2019-05-27 18:12 | NUR ---
SHIFT SUMMARY PT ALERT AND ORIENTED. VS STABLE. HR HAS BEEN AFLUTTER IN THE 70'S. BP STABLE PT AMBULATES TO BATHROOM NEEDED. WILL CONTINUE TO MONITOR AND REPORT TO ONCOMING RN. CALL LIGHT IN REACH.
--- NOTE | 2019-05-27 19:15 | NUR ---
OPENING NOTE RECEIVED REPORT FROM JESSI PEARSON AND ASSUMED PT CARE. PT IS SITTING UP IN BED, WATCHING TELEVISION, DENIES COMPLAINTS OR NEEDS AT THIS TIME. MED/TELE STATUS, WILL CONTINUE TO MONITOR.
--- NOTE | 2019-05-28 06:01 | NUR ---
PT HAS RESTED OFF AND ON, REQUESTED MEDICATION FOR PAIN, ANXIETY AND INSOMNIA DURING THE SHIFT. MEDICATED WITH GOOD EFFECT. PLAN IS FOR DISCHARGE TO HOME TODAY. PT STATES "I'M READY TO GO BUT I DON'T DRIVE SO I'LL NEED A TAXI. THEY WILL HAVE TO TAKE ME TO THE PHARMACY TO SENIOR LIBRARIAN MY NEW MEDICATIONS AND I CAN'T AFFORD THEM RIGHT NOW". REASSURED PT THAT VESSEL MASTER IS ORDERED FOR DISCHARGE PLANNING AND THAT THEY WOULD BE WORKING WITH HER PRIOR TO LEAVING THE HOSPITAL. NO OTHER CONCERNS AT THIS TIME, PT CONTINUES TO SHOW AFLUTTER ON TELEMETRY WITH CONTROLLED RATE. WILL REPORT OFF TO DAY SHIFT RN AND COMMUNICATE PENDING DISCHARGE NEEDS.
[2019-05-28 07:18] LABS: Albumin, Blood 2.8 g/dL (3.4-5.0); Anion Gap 2 mmol/L (6-16); Blood Urea Nitrogen 26 mg/dL (8-24); Bun/Creatinine Ratio 26.3 (12.0-20.0); CO2, Blood 31 mmol/L (21-32); Calcium, Blood 8.7 mg/dL (8.5-10.1); Chloride, Blood 105 mmol/L (98-108); Creatinine, Blood 0.99 mg/dL (0.40-1.00); Glomerular Filtration Rate 59 (60-); Glucose, Blood 73 mg/dL (70-99); Phosphorus, Blood 3.4 mg/dL (2.5-4.9); Potassium, Blood 4.8 mmol/L (3.5-5.5); Sodium, Blood 138 mmol/L (136-145)
[2019-05-28 07:31] LABS: BASOPHILS ABSOLUTE AUTO 0.13 K/mm3 (0.00-0.23); BASOPHILS PERCENT AUTO 2 % (0-2); EOSINOPHILS ABSOLUTE AUTO 0.41 K/mm3 (0.00-0.68); EOSINOPHILS PERCENT AUTO 7 % (0-6); Hematocrit 32.2 % (33.0-51.0); Hemoglobin 9.7 g/dL (11.5-16.0); IMMATURE GRAN ABSOLUTE AUTO 0.03 K/mm3 (0.00-0.10); IMMATURE GRAN PERCENT AUTO 1 % (0-1); LYMPHOCYTES ABSOLUTE AUTO 1.06 K/mm3 (0.84-5.20); LYMPHOCYTES PERCENT AUTO 18 % (21-46); MONOCYTES ABSOLUTE AUTO 0.51 K/mm3 (0.16-1.47); MONOCYTES PERCENT AUTO 9 % (4-13); Mean Corpuscular HGB 28.3 pg (26.0-34.0); Mean Corpuscular HGB Conc 30.1 g/dL (31.5-36.5); Mean Corpuscular Volume 94 fL (80-100); NEUTROPHILS ABSOLUTE AUTO 3.74 K/mm3 (1.96-9.15); NEUTROPHILS PERCENT AUTO 64 % (41-73); Platelet Count 447 K/mm3 (150-400); RDW Coefficient Variation 18.1 % (11.7-14.2); RDW Standard Deviation 62.4 fL (35.1-46.3); Red Blood Cell Count 3.43 M/mm3 (3.80-5.20); White Blood Cell Count 5.88 K/mm3 (4.00-11.30)
--- NOTE | 2019-05-28 08:14 | NUR ---
NURSING PCU DAYSHIFT: Assumed care of pt at approx 0700. A/O, pleasant, cooperative w/care. Denies any pain/discomfort at this time. Skin is fragile w/scattered bruising t/o, no breakdown noted. C/O chronic numbness/tingling of BLE, able to ambulate w/o difficulty. Tele in place, aflutter, HTN prior to a.m. meds, no noted edema. Respiratory status stable w/occ dry/PHOTOGRAPHIC SPECIALIST cough, O2 sat upper 90's on RA, denies dyspnea. Abd SNT, BT+, voiding w/o difficulty per pt. PIV x1, s/l. No s/s of acute distress at this time. Call light in reach and pt is able to use w/o difficulty. Seen by PMD, discharge home d/o received. Pt states rx's are 100% covered by insurance, cab ride will be set up for discharge. Pt denies any concerns regarding discharge at this time. Cont to monitor for changes.
[2019-05-28] MEDS ORDERED: DILTIAZEM 24HR120 MG PO (09:49)
[2019-05-28] MEDS ORDERED: ALBU90OI61 INH (09:49)
[2019-05-28] MEDS ORDERED: AIRDUO RESPICL1 EAC1 INH (09:50)
[2019-05-28] MEDS ORDERED: ROPI.25 PO (09:51)
[2019-05-28] MEDS ORDERED: Lopressor 25 mg25 MG PO (10:35)
[2019-05-28] MEDS ORDERED: FLUT1DIS5 INH (11:04)
[2019-05-28] MEDS ORDERED: Thiamine HCl100 MG PO (11:09)
[2019-05-28] MEDS ORDERED: ASPI81CH PO (11:11)
--- NOTE | 2019-05-28 11:39 | NUR ---
NURSING PCU DISCHARGE SUMMARY: No acute changes noted t/o the a.m. Discharge d/o completed, rx's called to [facility] per pt request. Pt denies any questions/needs at this time. Will escort from unit via w/c, cont to monitor until discharge is completed.
== END 2019-05-28 12:13 | disposition home or self-care (01) | DRG 309 ==
LOC: ER 12:59 → PCU 18:13
PROVIDERS: Emergency Medicine; Internal Medicine; Nurse Practitioner Acute Care; ADMIT Internal Medicine
DX: I48.91 Unspecified atrial fibrillation (principal); I50.32 Chronic diastolic (congestive) heart failure; J44.9 Chronic obstructive pulmonary disease, unspecified; D64.9 Anemia, unspecified; F17.210 Nicotine dependence, cigarettes, uncomplicated; I48.92 Unspecified atrial flutter; F10.20 Alcohol dependence, uncomplicated; I11.0 Hypertensive heart disease with heart failure; Z74.01 Bed confinement status; I25.2 Old myocardial infarction; G25.81 Restless legs syndrome; F31.9 Bipolar disorder, unspecified; Z86.711 Personal history of pulmonary embolism; Z59.0 Homelessness; Z66 Do not resuscitate; Z91.14 Patient's other noncompliance with medication regimen
CPT/HCPCS: 36415; 71046; 80053; 80069; 83690; 83735; 83880; 84484; 85025; 93005; 93010; 94640; 94760; 96365; 96366; 96375; 96376; 99285-25; A9270; G0480; J1940

== ENCOUNTER 2019-06-02 05:14 | Observation (INO) | payer MEDICARE ==
[~2019-06-02] VITALS: Ht 167.6 cm; Wt 57.7 kg
[~2019-06-02 05:14] MED LIST changes: +AIRDUO RESPICL1 EAC1 INH; +ALBU90OI61 INH; +ASPI81CH PO; +DILTIAZEM 24HR120 MG PO; +FLUT1DIS5 INH; +LORA.5; +Lopressor 25 mg25 MG PO; +ROPI.25 PO; +Thiamine HCl100 MG PO
[2019-06-02 05:47] LABS: BASOPHILS ABSOLUTE AUTO 0.09 K/mm3 (0.00-0.23); BASOPHILS PERCENT AUTO 1 % (0-2); EOSINOPHILS PERCENT AUTO 6 % (0-6); Hematocrit 33.1 % (33.0-51.0); Hemoglobin 10.6 g/dL (11.5-16.0); IMMATURE GRAN ABSOLUTE AUTO 0.04 K/mm3 (0.00-0.10); IMMATURE GRAN PERCENT AUTO 1 % (0-1); LYMPHOCYTES ABSOLUTE AUTO 0.99 K/mm3 (0.84-5.20); LYMPHOCYTES PERCENT AUTO 15 % (21-46); MONOCYTES ABSOLUTE AUTO 0.52 K/mm3 (0.16-1.47); MONOCYTES PERCENT AUTO 8 % (4-13); Mean Platelet Volume 9.2 fL (9.1-12.4); NEUTROPHILS ABSOLUTE AUTO 4.57 K/mm3 (1.96-9.15); NEUTROPHILS PERCENT AUTO 69 % (41-73); Platelet Count 433 K/mm3 (150-400); RDW Coefficient Variation 17.5 % (11.7-14.2); RDW Standard Deviation 57.8 fL (35.1-46.3); Red Blood Cell Count 3.66 M/mm3 (3.80-5.20); White Blood Cell Count 6.61 K/mm3 (4.00-11.30)
[2019-06-02 05:49] LABS: Mean Corpuscular Volume 90 fL (80-100)
[2019-06-02 06:08] LABS: Albumin, Blood 3.8 g/dL (3.4-5.0); Bilirubin, Total 0.5 mg/dL (0.1-1.0); Bun/Creatinine Ratio 25.2 (12.0-20.0); Calcium, Blood 8.7 mg/dL (8.5-10.1); Creatinine, Blood 1.07 mg/dL (0.40-1.00); Globulin, Blood 3.8 g/dL (2.2-4.0); Potassium, Blood 3.8 mmol/L (3.5-5.5); Total Protein, Blood 7.6 g/dL (6.4-8.2); Troponin I 0.117 ng/mL (0.000-0.040)
== END 2019-06-02 19:07 | disposition home or self-care (01) ==
LOC: ER 05:14 → PCU 05:15
PROVIDERS: Emergency Medicine; ADMIT Hospitalist
DX: I48.91 Unspecified atrial fibrillation (principal); F10.20 Alcohol dependence, uncomplicated; I10 Essential (primary) hypertension; F31.9 Bipolar disorder, unspecified; F17.210 Nicotine dependence, cigarettes, uncomplicated; Z87.19 Personal history of other diseases of the digestive system; Z59.0 Homelessness; Z86.711 Personal history of pulmonary embolism; Z79.899 Other long term (current) drug therapy; Z79.82 Long term (current) use of aspirin
CPT/HCPCS: 71045; 80053; 83880; 84484; 85025; 93005; 93010; 96361; 96374; 96375; 96376; 99285-25; G0378; G0480; J2060; J7030

== ENCOUNTER 2019-06-09 02:54 | Observation (INO) | payer MEDICARE ==
[~2019-06-09] VITALS: Ht 167.6 cm; Wt 58.6 kg
[2019-06-09 03:36] LABS: BASOPHILS ABSOLUTE AUTO 0.13 K/mm3 (0.00-0.23); BASOPHILS PERCENT AUTO 2 % (0-2); EOSINOPHILS ABSOLUTE AUTO 0.55 K/mm3 (0.00-0.68); EOSINOPHILS PERCENT AUTO 7 % (0-6); Hematocrit 37.5 % (33.0-51.0); Hemoglobin 12.3 g/dL (11.5-16.0); IMMATURE GRAN ABSOLUTE AUTO 0.02 K/mm3 (0.00-0.10); IMMATURE GRAN PERCENT AUTO 0 % (0-1); LYMPHOCYTES PERCENT AUTO 18 % (21-46); MONOCYTES ABSOLUTE AUTO 0.46 K/mm3 (0.16-1.47); MONOCYTES PERCENT AUTO 6 % (4-13); Mean Corpuscular HGB Conc 32.8 g/dL (31.5-36.5); Mean Platelet Volume 9.1 fL (9.1-12.4); NEUTROPHILS ABSOLUTE AUTO 5.39 K/mm3 (1.96-9.15); NEUTROPHILS PERCENT AUTO 68 % (41-73); Platelet Count 436 K/mm3 (150-400); RDW Coefficient Variation 17.3 % (11.7-14.2); RDW Standard Deviation 53.8 fL (35.1-46.3); White Blood Cell Count 7.95 K/mm3 (4.00-11.30)
[2019-06-09 03:37] LABS: Mean Corpuscular Volume 85 fL (80-100)
[2019-06-09 03:50] LABS: International Normalized Ratio 0.98; Prothrombin Time Results 10.4 Sec (9.7-11.5)
[2019-06-09 03:56] LABS: Albumin, Blood 4.2 g/dL (3.4-5.0); Bilirubin, Total 0.7 mg/dL (0.1-1.0); Bun/Creatinine Ratio 24.3 (12.0-20.0); Calcium, Blood 9.7 mg/dL (8.5-10.1); Creatinine, Blood 1.07 mg/dL (0.40-1.00); Globulin, Blood 4.2 g/dL (2.2-4.0); Total Protein, Blood 8.4 g/dL (6.4-8.2)
[2019-06-09 07:25] LABS: BASOPHILS ABSOLUTE AUTO 0.12 K/mm3 (0.00-0.23); BASOPHILS PERCENT AUTO 1 % (0-2); EOSINOPHILS ABSOLUTE AUTO 0.55 K/mm3 (0.00-0.68); EOSINOPHILS PERCENT AUTO 6 % (0-6); Hematocrit 33.6 % (33.0-51.0); Hemoglobin 10.8 g/dL (11.5-16.0); IMMATURE GRAN ABSOLUTE AUTO 0.03 K/mm3 (0.00-0.10); IMMATURE GRAN PERCENT AUTO 0 % (0-1); LYMPHOCYTES PERCENT AUTO 10 % (21-46); MONOCYTES ABSOLUTE AUTO 0.65 K/mm3 (0.16-1.47); MONOCYTES PERCENT AUTO 7 % (4-13); Mean Corpuscular HGB Conc 32.1 g/dL (31.5-36.5); Mean Corpuscular Volume 87 fL (80-100); Mean Platelet Volume 9.3 fL (9.1-12.4); NEUTROPHILS ABSOLUTE AUTO 7.71 K/mm3 (1.96-9.15); NEUTROPHILS PERCENT AUTO 77 % (41-73); Platelet Count 369 K/mm3 (150-400); RDW Coefficient Variation 17.2 % (11.7-14.2); RDW Standard Deviation 54.4 fL (35.1-46.3); Red Blood Cell Count 3.86 M/mm3 (3.80-5.20); White Blood Cell Count 10.06 K/mm3 (4.00-11.30)
[2019-06-09 07:36] LABS: Magnesium, Blood 2.3 mg/dL (1.6-2.4)
[2019-06-09 14:53] LABS: BASOPHILS ABSOLUTE AUTO 0.11 K/mm3 (0.00-0.23); BASOPHILS PERCENT AUTO 1 % (0-2); EOSINOPHILS PERCENT AUTO 5 % (0-6); Hematocrit 36.4 % (33.0-51.0); Hemoglobin 11.8 g/dL (11.5-16.0); IMMATURE GRAN ABSOLUTE AUTO 0.05 K/mm3 (0.00-0.10); IMMATURE GRAN PERCENT AUTO 0 % (0-1); LYMPHOCYTES ABSOLUTE AUTO 0.59 K/mm3 (0.84-5.20); LYMPHOCYTES PERCENT AUTO 5 % (21-46); MONOCYTES ABSOLUTE AUTO 0.76 K/mm3 (0.16-1.47); MONOCYTES PERCENT AUTO 6 % (4-13); Mean Corpuscular HGB Conc 32.4 g/dL (31.5-36.5); Mean Corpuscular Volume 86 fL (80-100); Mean Platelet Volume 9.4 fL (9.1-12.4); NEUTROPHILS ABSOLUTE AUTO 10.57 K/mm3 (1.96-9.15); NEUTROPHILS PERCENT AUTO 83 % (41-73); Platelet Count 378 K/mm3 (150-400); RDW Coefficient Variation 17.1 % (11.7-14.2); Red Blood Cell Count 4.22 M/mm3 (3.80-5.20); White Blood Cell Count 12.68 K/mm3 (4.00-11.30)
[2019-06-09 16:12] LABS: Source, Urine Catheter
[2019-06-09 16:24] LABS: Bilirubin, Urine Neg (Neg); Blood, Urine 2+ (Neg); Glucose Qualitative, Urine Neg (Neg); Ketones, Urine Neg (Neg); Leukocyte Esterase, Urine 3+ (Neg); Nitrite, Urine Neg (Neg); Protein, Urine Neg (Neg); Urobilinogen, Urine NORM (Normal)
[2019-06-09 16:38] LABS: Appearance, Urine Hazy (Clear); Color, Urine Pale Yellow (P-Yellow)
[2019-06-09 16:40] LABS: Red Blood Cells, Urine 0-2 /hpf (0-2); White Blood Cells, Urine 25-50 /hpf (0-5)
[2019-06-09 16:41] LABS: Bacteria Few /hpf; Squamous Epithelial Cells Not Seen /hpf (Few)
--- NOTE | 2019-06-09 17:21 | NUR ---
SHIFT SUMMARY PATIENT VERY AGITATED AND CLIMBING OUT OF BED ALL MORNING. REQUESTING TO GO HOME AND CALLING OUT. PATIENT IN CHRIS FOR FALL RISK. PATIENT REQUESTING TO USE THE RESTROOM EVERY 15 MINUTES. BLADDER SCAN SHOWS [address] COLLINS, ORDERS FOR ONE TIME STRAIGHT CATH AND Q6 BLADER SCAN GIVEN. AFTER CATH PATIENT HAS BEEN RESTING QUIETLY. DR. CORTES CONSULTED ON PATIENT, NO EGD NEEDED. PATIENT ADVANCED TO SOFT DIET WHEN ALERT ENOUGH. CALL LIGHT IN REACH.
[2019-06-09 22:25] LABS: BASOPHILS ABSOLUTE AUTO 0.07 K/mm3 (0.00-0.23); BASOPHILS PERCENT AUTO 1 % (0-2); EOSINOPHILS ABSOLUTE AUTO 0.51 K/mm3 (0.00-0.68); EOSINOPHILS PERCENT AUTO 5 % (0-6); Hemoglobin 11.2 g/dL (11.5-16.0); IMMATURE GRAN ABSOLUTE AUTO 0.03 K/mm3 (0.00-0.10); IMMATURE GRAN PERCENT AUTO 0 % (0-1); LYMPHOCYTES ABSOLUTE AUTO 0.49 K/mm3 (0.84-5.20); LYMPHOCYTES PERCENT AUTO 5 % (21-46); MONOCYTES ABSOLUTE AUTO 0.86 K/mm3 (0.16-1.47); MONOCYTES PERCENT AUTO 8 % (4-13); Mean Corpuscular HGB 28.1 pg (26.0-34.0); Mean Corpuscular Volume 88 fL (80-100); Mean Platelet Volume 9.3 fL (9.1-12.4); NEUTROPHILS ABSOLUTE AUTO 8.95 K/mm3 (1.96-9.15); NEUTROPHILS PERCENT AUTO 82 % (41-73); Platelet Count 346 K/mm3 (150-400); RDW Coefficient Variation 17.1 % (11.7-14.2); RDW Standard Deviation 55.5 fL (35.1-46.3); Red Blood Cell Count 3.99 M/mm3 (3.80-5.20); White Blood Cell Count 10.91 K/mm3 (4.00-11.30)
--- NOTE | 2019-06-09 22:26 | NUR ---
2000 PT ABLE TO STAND AND PIVOT TO UTILIZE [facility] [place] 1 STANDBY ASSIST, ALERT TO PERSON ONLY, ABLE TO FOLLOW SIMPLE VERBAL COMMANDS, VOIDING CLEAR YELLOW FLUID.
--- NOTE | 2019-06-09 23:00 | NUR ---
PT VOIDED 100CC YELLOW FLUID, POST VOID RESIDUAL 498ML.
[2019-06-10 05:41] LABS: Bun/Creatinine Ratio 22.3 (12.0-20.0); Calcium, Blood 8.8 mg/dL (8.5-10.1); Creatinine, Blood 1.03 mg/dL (0.40-1.00); Potassium, Blood 4.5 mmol/L (3.5-5.5)
--- NOTE | 2019-06-10 05:42 | NUR ---
SHIFT SUMMARY: 73 Y/O FEMALE RESTED COMFORTABLY ALL SHIFT, CIWA=0 ENTIRE SHIFT, ALERT TO PERSON ONLY, CALLED WHEN NEEDED TO URINATE VIA BSC, POOR BALANCE NOTED, HOWEVER; ABLE TO BEAR WEIGHT IN ALL TRANSFERS X 1 STANDBY ASSIST, CHRIS VEST MAINTAINED; DENIES PAIN OR NAUSEA, STRAIGHT CATHED X 1 LAST NIGHT AFTER BLADDER SCAN REFLECTED 500ML AND TOLERATED PROCEDURE WELL; THIS NURSE REVIEWED WITH PATIENT NEED TO CONSIDER GIVING UP ETOH DUE TO AFFECTS HAVING ON HEALTH WITH ACKNOOWLEDGEMENT NOTED; BED ALARMA APPLIED, BED LOW POSITION, CALL LIGHT AT SIDE.
[2019-06-10] MEDS ORDERED: FOLI1 PO (11:54)
[2019-06-10] MEDS ORDERED: THERA1 EACH PO (11:55)
--- NOTE | 2019-06-10 16:35 | NUR ---
DISCHARGE DISCHARGE MEDICATIONS AND INSTRUCTIONS EXPLAINED TO PATIENT. PATIENT STATED UNDERSTANDING. FOLLOW UP APPOINTMENT SCHEDULED WITH PCP. IV'S REMOVED WITHOUT DIFFICULTY. BELONGINGS WITH PATIENT. PATIENT GIVEN CAB VOUCHER BY PATIENT ADVOCATE. PATIENT TRANSFERED TO [facility] VIA WHEELCHAIR.
== END 2019-06-10 16:31 | disposition home or self-care (01) ==
LOC: ER 02:54 → MEDS 02:55
PROVIDERS: Emergency Medicine; Internal Medicine; ADMIT Internal Medicine
DX: K92.0 Hematemesis (principal); F10.229 Alcohol dependence with intoxication, unspecified; E87.1 Hypo-osmolality and hyponatremia; K21.9 Gastro-esophageal reflux disease without esophagitis; R29.6 Repeated falls; K85.90 Acute pancreatitis without necrosis or infection, unspecified; I10 Essential (primary) hypertension; I48.2 Chronic atrial fibrillation; I48.0 Paroxysmal atrial fibrillation; J44.9 Chronic obstructive pulmonary disease, unspecified; F31.9 Bipolar disorder, unspecified; F17.210 Nicotine dependence, cigarettes, uncomplicated; Z79.899 Other long term (current) drug therapy; Z79.82 Long term (current) use of aspirin; Z86.711 Personal history of pulmonary embolism; Z59.0 Homelessness
CPT/HCPCS: 36415; 51701; 80048; 80053; 81001; 83690; 83735; 84100; 85025; 85610; 87077; 87086; 87186; 94640; 94760; 96361; 96365; 96366; 96367; 96368; 96375; 96376; 99285-25; C9113; G0378; G0480; J2060; J2354; J2550; J3411; J3475; J3480; J7030; J7042; J7050

== ENCOUNTER 2019-06-17 13:56 | Observation (INO) | payer MEDICARE ==
[~2019-06-17] VITALS: Ht 167.6 cm; Wt 59.0 kg
[~2019-06-17 13:56] MED LIST changes: +THERA1 EACH PO
[2019-06-17 14:27] LABS: BASOPHILS ABSOLUTE AUTO 0.07 K/mm3 (0.00-0.23); BASOPHILS PERCENT AUTO 1 % (0-2); EOSINOPHILS ABSOLUTE AUTO 0.36 K/mm3 (0.00-0.68); EOSINOPHILS PERCENT AUTO 5 % (0-6); Hematocrit 38.3 % (33.0-51.0); Hemoglobin 12.1 g/dL (11.5-16.0); IMMATURE GRAN ABSOLUTE AUTO 0.02 K/mm3 (0.00-0.10); IMMATURE GRAN PERCENT AUTO 0 % (0-1); LYMPHOCYTES ABSOLUTE AUTO 0.96 K/mm3 (0.84-5.20); LYMPHOCYTES PERCENT AUTO 14 % (21-46); MONOCYTES ABSOLUTE AUTO 0.68 K/mm3 (0.16-1.47); MONOCYTES PERCENT AUTO 10 % (4-13); Mean Corpuscular HGB 28.7 pg (26.0-34.0); Mean Corpuscular HGB Conc 31.6 g/dL (31.5-36.5); NEUTROPHILS ABSOLUTE AUTO 4.97 K/mm3 (1.96-9.15); NEUTROPHILS PERCENT AUTO 70 % (41-73); Platelet Count 300 K/mm3 (150-400); RDW Coefficient Variation 17.9 % (11.7-14.2); Red Blood Cell Count 4.22 M/mm3 (3.80-5.20); White Blood Cell Count 7.06 K/mm3 (4.00-11.30)
[2019-06-17 14:46] LABS: Mean Corpuscular Volume 91 fL (80-100)
[2019-06-17 14:49] LABS: Alanine Aminotransfer (ALT/SGP 12 U/L (12-78); Albumin, Blood 3.2 g/dL (3.4-5.0); Albumin/Globulin Ratio 0.8 (0.8-1.8); Alk Phos 107 U/L (50-136); Anion Gap 11 mmol/L (6-16); Aspartate Aminotrans (AST/SGOT 15 U/L (12-37); Bilirubin, Total 0.4 mg/dL (0.1-1.0); Blood Urea Nitrogen 20 mg/dL (8-24); Bun/Creatinine Ratio 22.4 (12.0-20.0); CO2, Blood 26 mmol/L (21-32); Calcium, Blood 10.2 mg/dL (8.5-10.1); Chloride, Blood 100 mmol/L (98-108); Creatinine, Blood 0.89 mg/dL (0.40-1.00); Globulin, Blood 4.2 g/dL (2.2-4.0); Glomerular Filtration Rate >60 (60-); Glucose, Blood 107 mg/dL (70-99); Potassium, Blood 4.3 mmol/L (3.5-5.5); Sodium, Blood 137 mmol/L (136-145); Total Protein, Blood 7.4 g/dL (6.4-8.2); Troponin I <0.015 ng/mL (0.000-0.040)
[2019-06-17] MEDS ORDERED: ADULTS 50+ MUL1 EACH PO (16:57)
[2019-06-17] MEDS ORDERED: PRAMIPEXOLE D0.25 MG PO (16:57)
[2019-06-17] MEDS ORDERED: GABA300 PO (16:58)
[2019-06-17] MEDS ORDERED: FOLI1 PO (16:58)
--- NOTE | 2019-06-17 18:45 | NUR ---
PT ORIENTED TO ROOM. EXPLAINED FREQUENT ROUNDING ACTIVITIES AND SHOWN T.V. CONTROLS AND GENERAL BED OPERATION. CALL LIGHT WITHIN REACH. BED LOW AND IN LOCKED POSITION. PT DENIES PAIN, NAUSEA, CHESTPAIN OR ANY OTHER C/O AT THIS TIME. 1 ASSIST TO BSC SLIGHT WEAKNESS NOTED.
[2019-06-17 20:04] LABS: U Amphetamine Screen Not Detected; U Barbituate Screen Not Detected; U Methamphetamine Screen Not Detected
[2019-06-17 20:05] LABS: U Benzodiazapine Screen DETECTED; U Buprenorphine Screen Not Detected; U Cannabinoids Screen DETECTED; U Cocaine Screen Not Detected; U Methadone Screen Not Detected; U Opiates Screen Not Detected; U Oxycodone Screen Not Detected; U Phencyclidine Screen Not Detected; U Propoxyphene Screen Not Detected
--- NOTE | 2019-06-18 04:00 | NUR ---
SHIFT SUMMARY: PT IS ALERT AND ORIENTED WITH MINOR CONFUSION AND FORGETFULLNESS. PT IS A STANDBY ASSIST TO THE BSC. PT CALLS APPROPRIATELY. PT IS INTERMITTENTLY ANXIOUS BUT COOPERATIVE WITH CARE. PT DENIES PAIN, NAUSEA, VOMITING, AND SOB. PT SLEPT INTERMITTENTLY THROUGHOUT THE NIGHT. NO ACUTE CHANGES OR COMPLICATIONS THIS SHIFT. BED IN LOW POSITION, CALL LIGHT WITHIN REACH. WILL REPORT TO DAY NURSE.
[2019-06-18 06:58] LABS: BASOPHILS PERCENT AUTO 2 % (0-2); EOSINOPHILS ABSOLUTE AUTO 0.54 K/mm3 (0.00-0.68); EOSINOPHILS PERCENT AUTO 9 % (0-6); Hematocrit 31.7 % (33.0-51.0); Hemoglobin 9.9 g/dL (11.5-16.0); IMMATURE GRAN ABSOLUTE AUTO 0.02 K/mm3 (0.00-0.10); IMMATURE GRAN PERCENT AUTO 0 % (0-1); LYMPHOCYTES PERCENT AUTO 15 % (21-46); MONOCYTES ABSOLUTE AUTO 0.64 K/mm3 (0.16-1.47); MONOCYTES PERCENT AUTO 11 % (4-13); Mean Corpuscular HGB 28.2 pg (26.0-34.0); Mean Corpuscular HGB Conc 31.2 g/dL (31.5-36.5); Mean Corpuscular Volume 90 fL (80-100); Mean Platelet Volume 10.3 fL (9.1-12.4); NEUTROPHILS PERCENT AUTO 63 % (41-73); Platelet Count 287 K/mm3 (150-400); RDW Coefficient Variation 17.5 % (11.7-14.2); RDW Standard Deviation 58.2 fL (35.1-46.3); Red Blood Cell Count 3.51 M/mm3 (3.80-5.20)
[2019-06-18 07:13] LABS: Anion Gap 7 mmol/L (6-16); Blood Urea Nitrogen 16 mg/dL (8-24); Bun/Creatinine Ratio 18.6 (12.0-20.0); CO2, Blood 28 mmol/L (21-32); Chloride, Blood 103 mmol/L (98-108); Creatinine, Blood 0.86 mg/dL (0.40-1.00); Glomerular Filtration Rate >60 (60-); Glucose, Blood 88 mg/dL (70-99); Magnesium, Blood 1.8 mg/dL (1.6-2.4); Phosphorus, Blood 3.4 mg/dL (2.5-4.9); Potassium, Blood 3.8 mmol/L (3.5-5.5); Sodium, Blood 138 mmol/L (136-145)
--- NOTE | 2019-06-18 16:25 | NUR ---
PT IA A/OX3, COOPERATIVE, THE PT IS UP WITH ASSIST TO THE BATHROOM, THE WAS EVALUATED BY THE PHYSICAL THERAPIST TODAY AND WAS ABLE TO AMBULATE OUT INTO THE [place] USING THE FWW, THE PT WAS MEDICATED FOR ANXIETY/WITHDRAWL X3 TODAY, 1 TIME WITH IV ATIVAN, THE PT WAS EDUCATED ON WHAT THE ATIVAN MEDICATION WAS INTENDED FOR AND THAT THAT IS A CIWA SCORE> 8, THE PT APPEARS TO BE BREATHING EASILY AT THIS TIME ON RA, CALL LIGHT IN REACH
--- NOTE | 2019-06-19 04:27 | NUR ---
SHIFT SUMMARY: PT IS ALERT AND ORIENTED. PT IS INTERMITTENTLY ANXIOUS, CONSTANTLY REQUESTING ATIVAN. PT IS A STANDBY ASSIST TO THE BSC. PT SLEPT INTERMITTENTLY THROUGHOUT THE NIGHT. PT AGITATED AT TIMES. PT DENIES PAIN, NAUSEA, VOMITING, AND SOB. POSSIBLE PLACEMENT ISSUE. NO ACUTE CHANGES. WILL CONTINUE TO MONITOR.
--- NOTE | 2019-06-19 17:59 | NUR ---
PT IS A/OX3, COOPERATIVE, THE PT IS UP WITH MINIMAL ASSIST, THE PT APPEARS TO BE BREATHING EASILY ON RA, THE PT SLEPT T/O THE DAY AND ASKED FOR ATIVAN AND WAS MEDICATED WITH ATIVAN , THE PT CIWA SCORE REMAINED STABLE AT 5, THE PT ALSO REQUESTED SLEEPING PILLS AND WAS EDUCATED ON WHY SHE SHOULD NOT HAVE SLEEPING PILLS DURING THE DAY, CALL LIGHT IN REACH WILL CONTINUE TO MONITOR AND ASSESS FOR CHANGES
--- NOTE | 2019-06-20 05:14 | NUR ---
SHIFT SUMMARY: PT IS MORE AGITATED THIS SHIFT, RUDE TO STAFF. PT STILL CONSTANTLY REQUESTING ATIVAN. PT REQUESTING DILAUDID, OFFERED TYLENOL, PT DECLINED. PT GETTING UP TO THE BSC INDEPENDENTLY. PT SLEPT INTERMITTENTLY THROUGHOUT THE NIGHT. PT DENIES NAUSEA, VOMITING, AND SOB. NO ACUTE CHANGES. WILL CONTINUE TO MONITOR.
--- NOTE | 2019-06-20 09:14 | NUR ---
THIS AM THE PT INSSTED ON HAVING IV ATIVAN EVEN THOUGH HER CIWA SCORE WAS <8, HER IV WAS INFILTRATED AN ATTEMPT X2 TO RESTART HER IV WAS UNSUCCESFULL, A CALL WAS MADE TO DR. BROWN AND A DECISION TO LEAVE THE IV OUT AND DC THE ATIVAN WAS MADE
--- NOTE | 2019-06-20 14:56 | NUR ---
PT DISCHARGED DC INSTRUCTIONS WERE GIVEN TO THE PT BY DENG Souza RN CHARGE , THE PT WAS TRANSFERED VIA WHEELCHAIR ACCOMPANIED BY [employer] A TAXI WAS CALLED AND PROVIDED FOR THE PT, THE PT APPEARED TO BE BREATHING EASILY ON RA, PIANO MECHANIC APPRENTICE HAD TALKED TO THE PT JUST PRIOR TO DC
== END 2019-06-20 14:20 | disposition home or self-care (01) ==
LOC: ER 13:56 → MEDS 13:57
PROVIDERS: Emergency Medicine; ADMIT Internal Medicine
DX: I48.92 Unspecified atrial flutter (principal); I48.0 Paroxysmal atrial fibrillation; E86.0 Dehydration; F10.20 Alcohol dependence, uncomplicated; G47.00 Insomnia, unspecified; K27.9 Peptic ulcer, site unspecified, unspecified as acute or chronic, without hemorrhage or perforation; K22.2 Esophageal obstruction; I10 Essential (primary) hypertension; F31.9 Bipolar disorder, unspecified; J44.9 Chronic obstructive pulmonary disease, unspecified; F17.210 Nicotine dependence, cigarettes, uncomplicated; Z79.899 Other long term (current) drug therapy; Z79.82 Long term (current) use of aspirin
CPT/HCPCS: 36415; 71046; 80048; 80053; 83735; 84100; 84484; 85025; 93005; 93010; 94640; 94760; 96361; 96365; 96366; 96372; 96374; 96375; 96376; 97116; 97161; 99285-25; C9113; G0378; G0480; J1170; J1650; J2060; J2405; J3411; J3475; J7030; J7042

== ENCOUNTER 2019-06-28 14:52 | Emergency (ER) | payer MEDICARE ==
[~2019-06-28] VITALS: Ht 154.9 cm; Wt 57.1 kg
[~2019-06-28 14:52] MED LIST changes: +ADULTS 50+ MUL1 EACH PO; +PRAMIPEXOLE D0.25 MG PO
[2019-06-28 15:23] LABS: BASOPHILS PERCENT AUTO 1 % (0-2); EOSINOPHILS ABSOLUTE AUTO 0.21 K/mm3 (0.00-0.68); EOSINOPHILS PERCENT AUTO 2 % (0-6); Hematocrit 32.4 % (33.0-51.0); Hemoglobin 10.4 g/dL (11.5-16.0); IMMATURE GRAN ABSOLUTE AUTO 0.03 K/mm3 (0.00-0.10); IMMATURE GRAN PERCENT AUTO 0 % (0-1); LYMPHOCYTES ABSOLUTE AUTO 0.69 K/mm3 (0.84-5.20); LYMPHOCYTES PERCENT AUTO 7 % (21-46); MONOCYTES ABSOLUTE AUTO 0.58 K/mm3 (0.16-1.47); MONOCYTES PERCENT AUTO 6 % (4-13); Mean Corpuscular HGB 27.7 pg (26.0-34.0); Mean Corpuscular HGB Conc 32.1 g/dL (31.5-36.5); NEUTROPHILS ABSOLUTE AUTO 8.59 K/mm3 (1.96-9.15); NEUTROPHILS PERCENT AUTO 84 % (41-73); Platelet Count 465 K/mm3 (150-400); RDW Coefficient Variation 16.8 % (11.7-14.2); RDW Standard Deviation 52.3 fL (35.1-46.3); Red Blood Cell Count 3.76 M/mm3 (3.80-5.20)
[2019-06-28 15:25] LABS: Mean Corpuscular Volume 86 fL (80-100)
[2019-06-28 15:37] LABS: Alanine Aminotransfer (ALT/SGP 15 U/L (12-78); Albumin, Blood 3.6 g/dL (3.4-5.0); Albumin/Globulin Ratio 0.9 (0.8-1.8); Alk Phos 91 U/L (50-136); Anion Gap 7 mmol/L (6-16); Aspartate Aminotrans (AST/SGOT 16 U/L (12-37); Bilirubin, Total 0.4 mg/dL (0.1-1.0); Blood Urea Nitrogen 23 mg/dL (8-24); Bun/Creatinine Ratio 23.1 (12.0-20.0); CO2, Blood 28 mmol/L (21-32); Calcium, Blood 10.2 mg/dL (8.5-10.1); Chloride, Blood 101 mmol/L (98-108); Ethanol (Alcohol), Blood, Med <3 mg/dL; Globulin, Blood 4.1 g/dL (2.2-4.0); Glomerular Filtration Rate 58 (60-); Glucose, Blood 119 mg/dL (70-99); Magnesium, Blood 1.7 mg/dL (1.6-2.4); Potassium, Blood 3.7 mmol/L (3.5-5.5); Sodium, Blood 136 mmol/L (136-145); Total Protein, Blood 7.7 g/dL (6.4-8.2)
[2019-06-28] MEDS ORDERED: DILTIAZEM 24HR240 MG PO (16:29)
[2019-06-28] MEDS ORDERED: METO25 (16:29)
[2019-06-28] MEDS ORDERED: OXYB5 PO (16:29)
[2019-06-28] MEDS ORDERED: FLUT1DIS2 (16:29)
[2019-06-28] MEDS ORDERED: OMEPRAZOLE20 MG PO (16:29)
[2019-06-28] MEDS ORDERED: PRAM.5 PO (16:30)
[2019-06-28] MEDS ORDERED: COMBIVENT RESPIM4 GM (16:30)
[2019-06-28] MEDS ORDERED: NAPR500 PO (16:30)
[2019-06-28] MEDS ORDERED: AMLO10 PO (16:30)
[2019-06-28] MEDS ORDERED: GABA300 PO (16:31)
[2019-06-28] MEDS ORDERED: Cerovite Advan1 EACH PO (16:31)
[2019-06-28] MEDS ORDERED: CHLO25 PO (19:35)
== END 2019-06-28 20:27 | disposition home or self-care (01) ==
LOC: ER 14:52
PROVIDERS: Emergency Medicine
DX: F10.239 Alcohol dependence with withdrawal, unspecified (principal); Y90.0 Blood alcohol level of less than 20 mg/100 ml; I10 Essential (primary) hypertension; I48.91 Unspecified atrial fibrillation; F17.210 Nicotine dependence, cigarettes, uncomplicated; Z79.899 Other long term (current) drug therapy
CPT/HCPCS: 80053; 83690; 83735; 85025; 93005; 93010; 96361; 96374; 96375; 96376; 99285-25; C9113; G0480; J2060; J2405; J2550; J7120

== ENCOUNTER 2019-07-17 11:28 | Inpatient (IN) | payer MEDICARE ==
[~2019-07-17] VITALS: Ht 165.1 cm; Wt 54.6 kg
[~2019-07-17 11:28] MED LIST changes: +AMLO10 PO; +CHLO25 PO; +COMBIVENT RESPIM4 GM; +Cerovite Advan1 EACH PO; +DILTIAZEM 24HR240 MG PO; +FLUT1DIS2; +METO25; +NAPR500 PO; +OXYB5 PO; +PRAM.5 PO
[2019-07-17 12:47] LABS: BASOPHILS ABSOLUTE AUTO 0.11 K/mm3 (0.00-0.23); BASOPHILS PERCENT AUTO 1 % (0-2); Hematocrit 37.3 % (33.0-51.0); Hemoglobin 11.7 g/dL (11.5-16.0); LYMPHOCYTES ABSOLUTE AUTO 0.28 K/mm3 (0.84-5.20); LYMPHOCYTES PERCENT AUTO 1 % (21-46); MONOCYTES ABSOLUTE AUTO 0.87 K/mm3 (0.16-1.47); MONOCYTES PERCENT AUTO 4 % (4-13); Mean Corpuscular HGB 27.4 pg (26.0-34.0); Mean Corpuscular HGB Conc 31.4 g/dL (31.5-36.5); Mean Corpuscular Volume 87 fL (80-100); NRBC ABSOLUTE 0.18 K/mm3 (0.00-0.02); NRBC Auto 0.7 /100 WBC (0.0-0.2); RDW Coefficient Variation 17.7 % (11.7-14.2); RDW Standard Deviation 55.8 fL (35.1-46.3); Red Blood Cell Count 4.27 M/mm3 (3.80-5.20); White Blood Cell Count 24.27 K/mm3 (4.00-11.30)
[2019-07-17 12:52] LABS: Source, Urine Catheter
[2019-07-17 12:59] LABS: EOSINOPHILS ABSOLUTE AUTO 0.08 K/mm3 (0.00-0.68); EOSINOPHILS PERCENT AUTO 0 % (0-6); IMMATURE GRAN ABSOLUTE AUTO 0.36 K/mm3 (0.00-0.10); IMMATURE GRAN PERCENT AUTO 2 % (0-1); Mean Platelet Volume 11.6 fL (9.1-12.4); NEUTROPHILS ABSOLUTE AUTO 22.57 K/mm3 (1.96-9.15); NEUTROPHILS PERCENT AUTO 93 % (41-73); Platelet Count 201 K/mm3 (150-400)
[2019-07-17 13:05] LABS: Appearance, Urine Clear (Clear); Blood, Urine Neg (Neg); Color, Urine Yellow (P-Yellow); Glucose Qualitative, Urine Neg (Neg); Ketones, Urine 1+ (Neg); Leukocyte Esterase, Urine 1+ (Neg); Nitrite, Urine Neg (Neg); Protein, Urine 1+ (Neg); Urobilinogen, Urine 1+ (Normal)
[2019-07-17 13:12] LABS: Alanine Aminotransfer (ALT/SGP 33 U/L (12-78); Albumin, Blood 2.7 g/dL (3.4-5.0); Albumin/Globulin Ratio 0.6 (0.8-1.8); Alk Phos 329 U/L (50-136); Anion Gap 10 mmol/L (6-16); Aspartate Aminotrans (AST/SGOT 40 U/L (12-37); Bilirubin, Total 1.1 mg/dL (0.1-1.0); Blood Urea Nitrogen 62 mg/dL (8-24); Bun/Creatinine Ratio 37.3 (12.0-20.0); CO2, Blood 20 mmol/L (21-32); Calcium, Blood 9.2 mg/dL (8.5-10.1); Chloride, Blood 107 mmol/L (98-108); Creatinine, Blood 1.66 mg/dL (0.40-1.00); Ethanol (Alcohol), Blood, Med <3 mg/dL; Globulin, Blood 4.6 g/dL (2.2-4.0); Glomerular Filtration Rate 32 (60-); Glucose, Blood 77 mg/dL (70-99); Potassium, Blood 4.9 mmol/L (3.5-5.5); Sodium, Blood 137 mmol/L (136-145); Total Protein, Blood 7.3 g/dL (6.4-8.2)
[2019-07-17 13:16] LABS: Bilirubin, Urine 1+ (Neg)
[2019-07-17 13:17] LABS: Amorphous Mod (0-Heavy); Bacteria Rare /hpf; Red Blood Cells, Urine 0-2 /hpf (0-2); Squamous Epithelial Cells Few /hpf (Few)
[2019-07-17] MEDS ORDERED: PRAMIPEXOLE D0.25 MG PO (14:31)
[2019-07-17] MEDS ORDERED: FOLI1 PO (14:32)
[2019-07-17] MEDS ORDERED: ADULTS 50+ MUL1 EACH PO (14:33)
[2019-07-17] MEDS ORDERED: ASPI81CH PO (14:34)
[2019-07-17] MEDS ORDERED: VITAMIN B-1100 MG PO (15:31)
[2019-07-17] MEDS ORDERED: AMLO10 PO (15:32)
--- NOTE | 2019-07-17 18:13 | NUR ---
SHIFT SUMMARY: PATIENT ARRIVED TO [facility] AT APPROX 1521 VIA GURNEY FROM ED, TRANSFERED VIA 4 STAFF AND SLIDE SHEET. PATIENT HAS LARGE COCCYX DECUBE UPON ARRIVAL, MEPELEX PLACED, SKIN CLEANED AND PATIENT LINEN CHANGED. PATIENT CONFUSED AND AGGITATED WITH ALL ATTEMPTS AT MEDICAL INTERVENTION. PATIENT STATES SHE ONLY WANTS FOOD AND PAIN MEDICATION. PATIENT MEDICATION RECONCILIATION UNABLE TO BE VOMPLETED PATIENT DOES NOT KNOW WHAT MEDICATIONS SHE TAKES AND WHEN. PATIENT ADMINISTRATION HX COMPLETED WITH PATIENT BUT UNSURE HOW ACCURATE PATIENTS MEMORY OF HX IS. PATIENT ORIENTED TO ROOM, CALL LIGHT AND HOSPITAL POLICIES. VSS, CALL LIGHT WITHIN REACH, BED LOW AND LOCKED WITH EXIT ALARM ON.
--- NOTE | 2019-07-18 00:20 | NUR ---
TRANSFER PT TRANSFERED TO ICU AT THIS TIME. PT IS SLEEPING BUT WILL WAKE WITH STIMULATION. PT IS CURRENTLY ON 4 L NC, RESP SHALLOW, UNLABORED. HYPOTENSION, TACHYCARDIC. LR INFUSING @ 100 ML/HR. VANCO INFUSING PER EMAR. REPORT WAS GIVEN TO PIEDAD PEARSON.
--- NOTE | 2019-07-18 00:59 | NUR ---
ASSUMED CARE PT TRANSFERED FROM PCU TO ICU 10 AT 0025 VIA BED. PT IS SOMNOLENT, BUT AWAKENS TO VERBAL STIMULI AND IS RESTLESS WHEN AWAKE. PT IS ABLE TO ANSWER SIMPLE QUESTIONS AND REPETITIVELY STATES SHE IS GOING HOME TOMORROW. PT APPEARS FRAIL, WITH SCATTERED BRUISES ON BUE'S, AND WOUND TO COCCYX NOTED. PT WITH ATTENDS IN PLACE. POWER GLIDE TO GENEVIEVE AND 22G IV TO RIGHT WRIST. LR INFUSING AT 100 ML/HR AND NEOSYNEPHRINE STARTED AT 20 MCG/MIN. OK TO RUN LOW DOSE RHYS THROUGH PERIPHERAL IV ACCESS PER DR. SHANTI HAGAN. PT WITH SBP 80'S. PT ON 4L O2 NC. PT WITH POOR PERIPHERAL PERFUSION AND COOL EXTREMITIES. DIFFICULT TO OBTAIN GOOD SPO2 WAVEFORM. NO FAMILY AT BEDSIDE AT THIS TIME. WILL CONTINUE TO MONITOR.
[2019-07-18 03:22] LABS: Hematocrit 31.3 % (33.0-51.0); Hemoglobin 9.9 g/dL (11.5-16.0); Mean Corpuscular HGB 27.3 pg (26.0-34.0); Mean Corpuscular HGB Conc 31.6 g/dL (31.5-36.5); Mean Corpuscular Volume 87 fL (80-100); Mean Platelet Volume 10.6 fL (9.1-12.4); NRBC ABSOLUTE 0.17 K/mm3 (0.00-0.02); NRBC Auto 0.7 /100 WBC (0.0-0.2); Platelet Count 190 K/mm3 (150-400); RDW Coefficient Variation 17.2 % (11.7-14.2); RDW Standard Deviation 54.9 fL (35.1-46.3); Red Blood Cell Count 3.62 M/mm3 (3.80-5.20); White Blood Cell Count 24.52 K/mm3 (4.00-11.30)
[2019-07-18 03:38] LABS: Calcium, Blood 8.4 mg/dL (8.5-10.1); Creatinine, Blood 1.34 mg/dL (0.40-1.00); Potassium, Blood 3.5 mmol/L (3.5-5.5)
[2019-07-18 04:11] LABS: BAND PERCENT MAN 31 % (0-8); BASOPHILS PERCENT MAN 0 % (0-2); EOSINOPHILS PERCENT MAN 0 % (0-6); LYMPHOCYTES ABSOLUTE MAN 0.73 K/mm3 (0.84-5.20); LYMPHOCYTES PERCENT MAN 3 % (21-46); METAMYELOCYTE ABSOLUTE MAN 0.24 K/mm3 (0.00-0.00); METAMYELOCYTE PERCENT MAN 1 % (0-0); MONOCYTES ABSOLUTE MAN 0.24 K/mm3 (0.16-1.47); MONOCYTES PERCENT MAN 1 % (4-13); NEUTROPHILS ABSOLUTE MAN 23.29 K/mm3 (1.96-9.15); SEG NEUTROPHILS PERCENT MAN 64 % (41-73); TOTAL CELLS COUNTED 100
[2019-07-18 06:38] LABS: Source, Urine Catheter
--- NOTE | 2019-07-18 06:42 | NUR ---
SHIFT SUMMARY PT HAS CONTINUED TO BE RESTLESS AND AGITATED THROUGHOUT THE SHIFT. PT MOANS OUT FROM THE ROOM AND YELLS AT NURSING STAFF WHEN IN THE ROOM. PT ON 4L O2 NC. POWERGLIDE REMAINS IN PLACE WITH NEOSYNEPHRINE INFUSING AT 50 MCG/MIN THROUGH POWERGLIDE IN GENEVIEVE. LR INFUSING AT 100 ML/HR. PT ATTEMPTED TO VOID IN BEDPAN MULTIPLE TIMES WITHOUT SUCCESS. PT BLADDER SCANNED AND SHOWED OVER 1L. DR MONTERO NOTIFIED AND ORDERS RECIEVED FOR STRAIGHT CATH. STRAIGHT CATH DONE WITH 1100 DARK YELLOW URINE OUT. UA SENT. PT APPEARS MORE CALM AT THIS TIME. PT WITH ATTENDS IN PLACE. WILL CONTINUE TO MONITOR AND REPORT OFF TO ONCOMING RN.
[2019-07-18 06:51] LABS: Appearance, Urine Clear (Clear); Blood, Urine Neg (Neg); Color, Urine Yellow (P-Yellow); Glucose Qualitative, Urine Neg (Neg); Ketones, Urine 1+ (Neg); Leukocyte Esterase, Urine 2+ (Neg); Nitrite, Urine Neg (Neg); Protein, Urine 1+ (Neg); Urobilinogen, Urine 1+ (Normal)
[2019-07-18 06:59] LABS: Bilirubin, Urine 1+ (Neg)
[2019-07-18 07:01] LABS: Bacteria Rare /hpf; Red Blood Cells, Urine 0-2 /hpf (0-2); Squamous Epithelial Cells Few /hpf (Few)
[2019-07-18 07:02] LABS: Amorphous Mod (0-Heavy)
--- NOTE | 2019-07-18 07:05 | NUR ---
ASSUMED CARE: RECEIVED REPORT FROM NOC RN. PT APPEARS TO BE SLEEPING UPON ENTERING THE ROOM. VSS PT IS NOTED TO BE ON 5L NC. DO DISTRESS IS NOTED. WILL CONTINUE TO MONITOR AND ASSESS FURTHER.
--- NOTE | 2019-07-18 08:00 | NUR ---
ASSESSMENT: PT IS VERY ADAMIT THAT SHE DOES NOT HAVE PNEUMONIA. STATES PEOPLE THAT HAVE PNEUMONIA CAN'T TALK OR MOVE THEIR ARMS AND LEGS. EDUCATE PT ON PNEUMONIA AND THE S/S OF PNEUMONIA, WELL THE IMAGING SHE HAS RECEIVED WHICH VERAFIES SHE HAS PNEUMONIA. SPEECH THERAPY CAME TO SEE THE PT AND STATES PT NEEDS TO BE NPO D/T O2 DESATURATING WITH EVERY BITE OR DRINK. PT IS NOTED TO BE VERY DEMANDING STATING "GET ME TISSUE", "TURN MY LIGHT OFF" AND CONTINUES TO TELL STAFF "BULL SHIT" WHEN EDUCATED ON THE REASON WHY SHE IS NOT ABLE TO HAVE ANY FOOD OR DRINKS AT THIS TIME. PT APPEARS TO BE VERY AGITATED AND LABILE. CALL LIGHT IN REACH. PALATIVE CARE WAS NOTIFIED OF THE SITUATION AND REQUESTED TO SEE THE PT. WILL CONTINUE TO MONITOR AND ASSESS FURTHER.
--- NOTE | 2019-07-18 11:30 | NUR ---
Initial Visit: Pt admitted for weakness, falls. She has pneumonia. History of afib, hypertension, bipolar disorder, chronic ETOH, esophageal stricture, GI bleed, COPD, noncompliance, dysphasia, recurrent falls, R hip repair. Pt is alert, oriented. She is complaining of dyspnea, anxiety, and pain. States pain 8/10. She reports that she usually takes Asprin and ibuprofen at home to manage her pain. She states that managing her pain is her priority at this time, followed by eating. She is very hungry and feels ill because she is so hungry. She reports that if she "just had something to eat" she would be better. She is wearing high flow O2, has declined wearing a mask, per nurse. She states that she wants to because she is in so much pain and states that she now feels that she is suffering. Reviewed current wishes. She does not want intubation, she is declining to have an NG tube placed for nutrition. Discussed with nurse Leyla. Will return to room today to follow up with pt. It was difficult talking to her while she was in so much pain. Need to strategize for plan of care. Pt is appropriate for comfort care and hospice due to her multiple comorbidities and current illness. She is unsafe to swallow, and requesting food. Will follow up.
--- NOTE | 2019-07-18 14:28 | NUR ---
PALATIVE CARE: WHILE DR WHITING WAS IN THE ROOM TO ASSESS THE PT, THE PT STATED NUMEROUS TIMES SHE WANTED TO EAT AND DRINK SOMETHING. DR WHITING EDUCATED THE PT ON THE REASONS TO WHY THE PT IS NPO AND THE RISKS INVOLVED IN EATING AND DRINKING. PT STATES "BULL SHIT" TO THE DR TO WHY SHE CAN'T EAT OR DRINK AND STATES SHE WOULD BE "FINE" AND CONTINUES TO REQUEST FOOD AND DRINKS. PT IS EDUCATED THAT SHE CAN EAT AND DRINK IF SHE DECIDED TO BECOME COMFORT CARE, BUT BY DOING THAT SHE WOULD INEVITABLY , TO WHICH THE PT STATES THAT IS WHAT SHE WANTED. [facility] WAS CALLED TO DISCUSS IN DEPTH COMFORT CARE AND END OF LIFE WISHES. BIANCA LÓPEZ RN AND D[facility] CAME TO SEE AND TALK WITH THE PT AT DIFFERENT TIMES. COMFORT CARE WAS DISCUSSED INDEPTH WITH THE PT BY BOTH BIANCA AND JAZMINE. ONCE THE PT DECIDED TO BECOME COMFORT CARE, DR RIVERO WAS NOTIFIED AND CAME TO THE ROOM. ONCE AGAIN DR RIVERO DISCUSSED WITH THE PT COMFORT CARE AND VERAFIED THE PT UNDERSTOOD THE MEANING AND PLAN OF CARE. AFTERWARDS DR HOLDER AGREED TO FOLLOW THROUGH WITH THE PATIENTS WISHES TO BECOME COMFORT CARE. DR WHITING NOTIFIED AND COMFORT CARE ORDERS PLACED IN THE COMPUTER.
--- NOTE | 2019-07-18 15:21 | NUR ---
Clinical Visit: Follow up visit. Pt remains alert, oriented. She is happily sitting up in bed, eating a lunch tray. She reports she feels much better. She reports her pain as 7/10, but she is no longer crying and much more interactive. Reviewed new medications: Roxanol, Ativan. Instructed on purpose for these medications and need for requesting these medications if symptoms arise. No other concerns, she is happy and thanks staff for working so hard to get her pain relieved.
--- NOTE | 2019-07-18 17:11 | NUR ---
Spiritual Care intial note: Adilia was welcoming of visit and prayer. She tells me she is ready to and is "tired of suffering." She recently fell in the parking lot of her residence and "No one came to help me for an hour." She has been estranged from all family for decades. She appears to have little to no emotionl/spiritual/physical support. She has been living in a local motel. Adilia and I spoke at length about dying. She tells me she welcomes the idea and has been "saved." We prayed together for peace in her soul at her request. Informed RN of pts statements. Adilia was consistent in her answers about end-of-life. She is tired of struggling. Physician arrived and pt asked again about her wishes. Adilia again stated her desire to be kept "comfortable" and allowed a peaceful passing. She does not want her family contacted. I will remain available.
--- NOTE | 2019-07-19 04:16 | NUR ---
SHIFT SUMMARY PT WITH C/O SEVERE PAIN TO BUTTOCK, MEDICATED WITH EMAR. PT WITH MULTIPLE ATTEMPTS TO GET OUT OF BED WITHOUT ASSISTANCE, APPEARED VERY ANXIOUS, MEDICATED PER EMAR. PT ABLE TO VERBALIZE PAIN AND DISCOMFORT MOST OF THE TIME BUT DOES HAVE INTERMITTENT CONFUSION. PT DOES NOT USE CALL LIGHT APPROPRIATELY. PT APPEARES TO RESPOND WELL TO PAIN TREATMENT WITH TWO PAIN MEDICATIONS TOGETHER AND DOES NOT RESPOND WELL TO ONE ALONE. PT APPEARS TO BE SLEEPING COMFORTABLY AT THIS TIME WITH NO APPARENT SIGNS OF ACUTE DISTRESS. WILL CONTINUE TO MONITOR FOR COMFORT.
[2019-07-19 11:16] LABS: Source, Urine Catheter
[2019-07-19 11:20] LABS: Blood, Urine Neg (Neg); Glucose Qualitative, Urine Neg (Neg); Ketones, Urine Neg (Neg); Leukocyte Esterase, Urine 1+ (Neg); Nitrite, Urine Neg (Neg); Protein, Urine 1+ (Neg); Specific Gravity, Urine 1.005 (1.003-1.022); Urobilinogen, Urine 1+ (Normal)
--- NOTE | 2019-07-19 12:09 | NUR ---
Comfort care nursing visit. Pat does not open her eyes or attempt to communicate with staff when her name is spoken and her arm touched. Her RR is even and shallow at 24/min, resp appear unlabored at this time. Mottling noted to hands and feet and knees bilat. Castellanos was recently placed for comfort with dark isi urine present. Spoke with nursing who states she appears more calm after castellanos placed. Bladder scan showed >999ml or urine in bladder per nursing prior to catheter placement. Discussed pain management and air hunger treatment strategies with nursing. Nursing will plan to use SL roxinol to manage symptoms and only use the IV medications if SL/PO meds are not effective for symptom relief.
[2019-07-19 12:17] LABS: Bilirubin, Urine 1+ (Neg)
--- NOTE | 2019-07-19 12:34 | NUR ---
PATIENT FOUND TO HAVE PASSED AT 1212. VERIFIED BY TWO RN'S. DR WHITING NOTIFIED AT 1226.
--- NOTE | 2019-07-19 13:21 | NUR ---
THIS RN ROUNDED ON PATIENT AT 1212. NOTED PATIENT TO BE . NO PULSE. NOTIFIED CHARGE NURSE MICHOACANO PERALTA. IV REMOVED. EUCEDA REMOVED. POST MORTUM CARE PERFORMED BY [employer] OR [employer].
[2019-07-19 13:27] LABS: Appearance, Urine Clear (Clear); Color, Urine Yellow (P-Yellow)
[2019-07-19 13:38] LABS: Bacteria Rare /hpf; Red Blood Cells, Urine 0-2 /hpf (0-2); Squamous Epithelial Cells Not Seen /hpf (Few)
--- NOTE | 2019-07-19 15:05 | NUR ---
patient picked up by services. placed in yellow iso gown.
--- NOTE | 2019-07-19 16:53 | NUR ---
Spiritual care note: Prayed at bedside for Adilia. She passed peacefully.
== END 2019-07-19 12:12 | DRG 871 ==
LOC: ER 11:28 → PCU 14:59 → ICUW 14:59 → PCU 16:49 → ICUW 23:29 → MEDS 07-18 18:57
PROVIDERS: Hospitalist; Internal Medicine; ADMIT Family Medicine
PROC: 3E033XZ Introduction of Vasopressor into Peripheral Vein, Percutaneous Approach (ICD-10-PCS; principal; 2019-07-17)
DX: A41.9 Sepsis, unspecified organism (principal); R65.21 Severe sepsis with septic shock; J18.1 Lobar pneumonia, unspecified organism; J96.01 Acute respiratory failure with hypoxia; N17.9 Acute kidney failure, unspecified; J44.0 Chronic obstructive pulmonary disease with (acute) lower respiratory infection; Z51.5 Encounter for palliative care; I48.2 Chronic atrial fibrillation; Z79.01 Long term (current) use of anticoagulants; K21.9 Gastro-esophageal reflux disease without esophagitis; D63.1 Anemia in chronic kidney disease; F31.9 Bipolar disorder, unspecified; F10.10 Alcohol abuse, uncomplicated; Z91.81 History of falling; F17.210 Nicotine dependence, cigarettes, uncomplicated; Z91.19 Patient's noncompliance with other medical treatment and regimen; K22.2 Esophageal obstruction; G62.9 Polyneuropathy, unspecified; I95.9 Hypotension, unspecified
CPT/HCPCS: 36415; 51701; 71046; 80048; 80053; 81001; 82140; 83605; 85025; 87040; 87086; 92610; 94640; 94760; 96361; 96365; 96367; 99285-25; A9270; C1751; G0480; J0456; J0692; J0696; J1650; J2370; J3010; J3370; J7030; J7040; J7050; J7120; P9612